=== PATIENT | female | born 1940 | race Caucasian/White ===

== ENCOUNTER → 2019-10-20 | Outpatient (CLI) | payer MEDICARE, OTHER ==
[~2019-10-20] MED LIST: FLUT16SP NS; LANS30CA PO; LEVO137T44 PO; LOSA100T14 PO; MELO15TA23 PO; METO25TA2 PO; MONT10TA49 PO
== END | disposition home or self-care (01) ==
LOC: LAB 13:50
PROVIDERS: ATTEND Internal Medicine Gastroenterology
DX: Z11.59 Encounter for screening for other viral diseases (principal)
CPT/HCPCS: U0003-CS

== ENCOUNTER → 2019-10-25 | Day surgery (SDC) | payer MEDICARE ==
[~2019-10-25] MED LIST changes: +HYDROmorphone 2 MG/ML VIAL IV PRN; +IV RINGERS,LACTATED 1000ML 1,000 ML IV SCH; +LIDOCAINE 1% PF 2 ML VIAL. ID PRN; +LIDOCAINE 2% PF 5 ML VIAL. ONE; +MORPHINE SULFATE 2 MG/ML VIAL. IV PRN; +ONDANSETRON PF 4 MG/2 ML VIAL. IV PRN; +PROCHLORPERAZINE 10 MG/2 ML VIAL. IV PRN; +PROPOFOL 10 MG/ML (20ML) VIAL. IV ONE; +fentaNYL PF VIAL 100 MCG/2 ML VIAL IV PRN; +hydrALAZINE 20 MG/ML VIAL. ONE
[2019-10-25 11:13] VITALS: BP 181/85
--- NOTE | 2019-10-26 15:08 | PATHOLOGY ---
[facility] Accession Number: [id number] . 01 Material submitted: . PART A: small bowel - SMALL BOWEL BIOPSY PART B: stomach - GASTRIC ANTRUM AND BODY BIOPSY. Modifiers: body PART C: esophagus - DISTAL ESOPHAGUS BIOPSY. Modifiers: distal PART D: esophagus - MID ESOPHAGUS BIOPSY. Modifiers: mid . 01 Clinical history: . Dysphagia . 02 Diagnosis: A. Small bowel biopsies: - No significant pathologic abnormalities. . B. Gastric biopsies, gastric antrum and gastric body: - Reactive gastropathy. . C. Esophageal biopsies, distal esophagus: - Segments of hyperplastic squamous esophageal mucosa, esophagogastric mucosa, and gastric mucosa showing mild to focal moderate chronic inflammation, with focal columnar-lined mucosa showing intestinal metaplasia with goblet cells consistent with Rodriguez's change. . D. Esophageal biopsies, middle esophagus: - Segments of squamous esophageal mucosa. . (BOGDANM:ney; 10/26/2019) [facility] 10/26/2019 1449 Local . 02 Comment: Sections of the small bowel biopsy reveal segments of duodenal and small intestine mucosa. Where best oriented, the mucosal villi show no sprue-like changes or significant inflammatory changes. . Sections of the gastric biopsy reveal segments of gastric body and gastric antral mucosa. The gastric body mucosa shows superficial congestion and no significant inflammation. The gastric antral mucosa shows congestion, mild foveolar hyperplasia, and focal slight chronic inflammation. A properly controlled immunoperoxidase stain for Helicobacter is negative for Helicobacter organisms. The findings are consistent with a reactive gastropathy. . Sections of the distal esophageal biopsy reveal segments of hyperplastic squamous esophageal mucosa, esophagogastric mucosa and gastric mucosa showing mild to focal moderate chronic inflammation. 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 There is no dysplasia or evidence of malignancy. . Sections of the middle esophageal biopsy reveal segments of tangentially oriented squamous esophageal mucosa. There is no evidence of Rodriguez's change, dysplasia, or malignancy. . (JPM:ney; 10/26/2019) . Special stain performed: Immunoperoxidase stain for Helicobacter on B1 . 02 Electronically signed: . Jose Bell MD, Pathologist NPI- [id number] . 01 Gross description: . A. The specimen is received in formalin, labeled "Paulino, Amarilis, small bowel BX" and consists of 3 fragments of pink-landry tissue measuring between 2.3 x 0.3 cm and 0.6 x 0.4 cm which are entirely submitted in A1. . B. The specimen is received in formalin, labeled "Paulino, Amarilis, gastric antrum and body BX" and consists of 2 fragments of pink-landry tissue measuring 0.6 x 0.2 cm and 0.4 x 0.3 cm which are entirely submitted in B1. . C. The specimen is received in formalin, labeled "Paulino, Amarilis, distal esophagus BX" and consists of multiple fragments of pink-landry tissue measuring 1.3 x 1.0 x 0.3 cm in aggregate which are entirely submitted in C1. . D. The specimen is received in formalin, labeled "Paulino, Amarilis, mid esophagus BX" and consists of 2 translucent fragments of pink tissue measuring between 0.3 x 0.2 cm and 0.4 x 0.2 cm which are entirely submitted in D1. (SDY; 10/25/2019) SYU/SYU 10/25/2019 1821 Local . 02 Pathologist provided ICD-10: K31.9, K20.8 . 02 CPT . 232206, 581257, 946514, [id number], [id number] Specimen Comment: A courtesy copy of this report has been sent to [phone], [phone] Specimen Comment: [id number] Specimen Comment: Report sent to / DR MO Performed at: 01 [facility] [address], [place] [id number] MD Terence Rosario MD Phone: [phone] Performed at: 02 [facility] [address], [place] [id number] MD Jose Bell MD Phone: [phone]
== END | disposition home or self-care (01) ==
LOC: ENDOS 08:49
PROVIDERS: ATTEND Internal Medicine Gastroenterology
DX: Z12.11 Encounter for screening for malignant neoplasm of colon (principal); K22.2 Esophageal obstruction; K64.0 First degree hemorrhoids; K21.9 Gastro-esophageal reflux disease without esophagitis; K57.30 Diverticulosis of large intestine without perforation or abscess without bleeding; K29.70 Gastritis, unspecified, without bleeding; E78.00 Pure hypercholesterolemia, unspecified; M19.90 Unspecified osteoarthritis, unspecified site; Z88.8 Allergy status to other drugs, medicaments and biological substances; Z87.891 Personal history of nicotine dependence; Z82.49 Family history of ischemic heart disease and other diseases of the circulatory system; Z86.010 Personal history of colon polyps
CPT/HCPCS: 43239; 43450; 88305; 88342; G0105; J0360; J2704; 45378

== ENCOUNTER 2021-02-03 14:36 | Inpatient (IN) | payer MEDICARE ==
[~2021-02-03] VITALS: Ht 167.6 cm; Wt 79.0 kg
[~2021-02-03 14:36] MED LIST changes: -HYDROmorphone 2 MG/ML VIAL IV PRN; -IV RINGERS,LACTATED 1000ML 1,000 ML IV SCH; -LIDOCAINE 1% PF 2 ML VIAL. ID PRN; -LIDOCAINE 2% PF 5 ML VIAL. ONE; -MORPHINE SULFATE 2 MG/ML VIAL. IV PRN; -ONDANSETRON PF 4 MG/2 ML VIAL. IV PRN; -PROCHLORPERAZINE 10 MG/2 ML VIAL. IV PRN; -PROPOFOL 10 MG/ML (20ML) VIAL. IV ONE; -fentaNYL PF VIAL 100 MCG/2 ML VIAL IV PRN; -hydrALAZINE 20 MG/ML VIAL. ONE
--- NOTE | 2021-02-03 15:12 | PHYS DOC ---
Past Medical History Additional Past Medical Histor: Rodriguez's Esophagus, Grave's Disease, Sleep apnea, Emphysema Past Surgical History: No Surgical History Smoking Status: Never Smoker Alcohol Use: None Drug Use: None General Adult EDM: Chief Complaint: ALTERED MENTAL STATUS HPI: HPI: Patient is a 80 year old female presents to the ED after an episode of confusion, slurred speech, and difficulty walking that occurred around 1210 this afternoon when she was at a family gathering for a grandson's birthday. Family who was with her reports that she was struggling to speek and when she did, it was markedly slurred. She appeared confused as well. She had difficulty walking and with coordination. All of these symptoms spontaneously resolved around 1:45 and at this time, the patient has no neurological complaint and the patient's daughter states she is now acting at her baseline. She did not take any new medications today. The patient denies nausea, vomiting, fever, chills, chest pain, shortness of breath, abdominal pain, urinary symptoms, cough, recent trauma, or any other complaints. She has had several orthopedic procedures with implanted metal. Glucose 141 POC. Review of Systems: Review of Systems: Constitutional: Negative except what was mentioned in HPI. Eyes: Negative except what was mentioned in HPI. HENT: Negative except what was mentioned in HPI. Respiratory: Negative except what was mentioned in HPI. Cardiovascular: Negative except what was mentioned in HPI. GI: Negative except what was mentioned in HPI. : Negative except what was mentioned in HPI. Musculoskeletal: Negative except what was mentioned in HPI. Integument: Negative except what was mentioned in HPI. Neurologic: Negative except what was mentioned in HPI. Heart Score: C/O Chest Pain: No Family History: Family History: non contributory Allergies: Allergies: Allergies Coded Allergies Type Severity Reaction Last Updated Verified Penicillins Allergy Intermediate 10/25/19 Yes Sulfa (Sulfonamide Antibiotics) Allergy Intermediate 10/25/19 Yes propylene glycol Allergy Intermediate 10/25/19 Yes Physical Exam: PE: General: Alert and oriented, No acute distress. Eye: Pupils are equal, round and reactive to light, Extraocular movements are intact, Normal conjunctiva. HEENT: Oral mucosa is moist, Normocephalic, Atraumatic. Neck: Supple, Non-tender. Cardiovascular: Normal rate, Good pulses equal in all extremities, Normal peripheral perfusion. Capillary refill: Less than 2 seconds. Respiratory: Nonlabored respirations, symmetrical expansion. Integumentary: Warm, Dry, Intact, No pallor. Neurologic: Orientation: The patient is alert and oriented to person, place, time, and situation. Following commands, speech is fluent, intact comprehension. Cranial Nerves: 2nd: normal; Visual crawley are full to confrontation. Pupils are equal, round and reactive to light and accommodation. 3rd, 4th & 6th: Extraocular movements are intact without nystagmus. 5th: normal; intact muscles of mastication. Intact to light touch. 7th: normal; no facial asymmetry 8th: normal 9th and 10th: normal; Uvula midline. 11th: normal; Shoulder shrug is symmetric 12th: normal; tongue is midline. Strength: Motor strength is 5/5 in the upper and lower extremities bilaterally. Normal bulk and tone in all four limbs without any evidence of an arm drift. Sensory: Intact to light touch in upper extremities and lower extremities bilaterally. Coordination is intact [id number], fine finger movements, rapidly alternating movements, heel to syed. Gait is normal and stable without ataxia. Psychiatric: Cooperative, Appropriate mood & affect. Current Patient Data: Labs: Laboratory Tests Test 02/03/21 15:15 White Blood Count 7.7 x10^3/uL (4.0-11.0) Red Blood Count 4.36 x10^6/uL (3.50-5.40) Hemoglobin 13.9 g/dL (12.0-15.5) Hematocrit 40.7 % (36.0-47.0) Mean Corpuscular Volume 94 fL (79-100) Mean Corpuscular Hemoglobin 32 pg (25-35) Mean Corpuscular Hemoglobin Concent 34 g/dL (31-37) Red Cell Distribution Width 14.5 % (11.5-14.5) Platelet Count 228 x10^3/uL (140-400) Neutrophils (%) (Auto) 73 % (31-73) Lymphocytes (%) (Auto) 18 % (24-48) Monocytes (%) (Auto) 7 % (0-9) Eosinophils (%) (Auto) 2 % (0-3) Basophils (%) (Auto) 1 % (0-3) Neutrophils # (Auto) 5.6 x10^3/uL (1.8-7.7) Lymphocytes # (Auto) 1.4 x10^3/uL (1.0-4.8) Monocytes # (Auto) 0.5 x10^3/uL (0.0-1.1) Eosinophils # (Auto) 0.1 x10^3/uL (0.0-0.7) Basophils # (Auto) 0.1 x10^3/uL (0.0-0.2) Sodium Level 138 mmol/L (136-145) Potassium Level 4.1 mmol/L (3.5-5.1) Chloride Level 102 mmol/L (98-107) Carbon Dioxide Level 30 mmol/L (21-32) Anion Gap 6 (6-14) Blood Urea Nitrogen 14 mg/dL (7-20) Creatinine 0.9 mg/dL (0.6-1.0) Estimated GFR (Cockcroft-Gault) 60.4 Glucose Level 113 mg/dL (70-99) Calcium Level 8.9 mg/dL (8.5-10.1) Thyroid Stimulating Hormone (TSH) 0.284 uIU/mL (0.358-3.74) Vital Signs: Vital Signs Date Time Temp Pulse Resp B/P (MAP) Pulse Ox O2 Delivery O2 Flow Rate FiO2 02/03/21 14:50 97.7 80 16 180/88 (118) 99 Room Air 97.7 EKG: EKG: Sinus arrhythmia rate of 79, no ST-T wave changes, no ectopic beats, normal axis, normal WA, QRS, and QTc intervals. Impression: Normal EKG. interpreted by me, Rob Villalobos D.O. Radiology/Procedures: Radiology/Procedures: HISTORY: Code stroke, slurred speech, transient ischemic attack. PQRS statement: CT scans at this facility use dose reduction including either automated exposure control, iterative reconstructions, and /or weight based radiation dosing via mA and kV modification when appropriate to reduce radiation dose to as low as reasonably achievable. Findings: Calcified plaque intracranial arteries. No intracranial hemorrhage, mass, hydrocephalus, extra-axial fluid collections or infarction. There is loss of doss matter differentiation with cortical and white matter hypodensity involving the left anterior insular ribbon and frontal opercular cortex. This is concerning for acute left MCA territory ischemic changes. Orbits, mastoids and bones are unremarkable. IMPRESSION: No intracranial hemorrhage or mass. Hypodensity of the left frontal lobe cortex and underlying white matter, and insular cortex, with loss of doss/white matter differential density, concerning for acute left MCA territory ischemic changes. CTA NECK: Visualized portions of thoracic aorta are unremarkable. Standard three-vessel aortic arch anatomy. Right common carotid artery is patent without evidence of stenosis, occlusion or aneurysm. Cervical segment of the right internal carotid artery is patent without evidence of stenosis, occlusion or aneurysm. Minimal plaque at the origin of the right internal carotid artery without significant stenosis. Left common carotid artery is patent without evidence of stenosis, occlusion or aneurysm. There is minimal plaque at the origin of the left internal carotid artery without significant stenosis. Right vertebral artery is patent to the basilar confluence without evidence of stenosis, occlusion or aneurysm. Left vertebral artery is patent to basilar confluence without evidence of stenosis, occlusion or aneurysm. Moderate centrilobular emphysematous change noted at the upper lobes. CTA HEAD: Minimal calcified plaque at the cavernous segment of the right internal carotid artery velocity stenosis. Right MCA is patent. Right SAW is patent. Minimal calcified plaque at the cavernous segment left internal carotid artery without significant stenosis. Left MCA is patent. Left SAW is patent. Basilar artery is patent without evidence of stenosis, occlusion or aneurysm. traveling clerk are patent bilaterally. IMPRESSION: 1. No large vessel occlusion. 2. Minimal plaque at the origin of the internal carotid arteries bilaterally without significant stenosis. 3. Minimal plaque at the cavernous segments of the internal carotid arteries bilaterally without significant stenosis. Course & Med Decision Making: Course & Med Decision Making Patient was seen by me after concerning symptoms for stroke versus TIA. Her neurological exam as above was unremarkable and the patient and the patient's family believe that she is back to baseline at the time of my initial evaluation. I discussed the case with Dr. Payton after my initial evaluation. The patient then had a noncontrast CT scan ordered which showed no acute bleed but showed evidence for an acute left MCA stroke. She then went emergently for another CT angiogram which did not show any vessel occlusion. I discussed both cases with the radiologist. I further discussed the case with Dr. Payton after imaging was completed and I discussed the case with the radiologist. No further acute intervention recommended per Dr. Payton and the patient will likely receive an MRI while in the hospital. Aspirin 325 mg was ordered by me. Upon counseling the patient, the patient's neurological exam has not changed and she remains at baseline without any deficits. Her NIH score is 0. Because of this, the patient is not a candidate for TPA as the risk would likely outweigh the benefits given that she has recovered and her neurological exam is benign. Admission process started. 1650: After Dr. Payton reviewed scans, he believes there may be an MCA lesion and he disagrees with the radiology read. Recommended consult with neurointerventional. I discussed this with Dr. Ramirez at at 1655. Images clouded. 1730: I discussed the case with neurology who does not recommend intervention or transfer. Patient has distal M2 lesion that is not accessible by thrombectomy per their read. She is also not a candidate due to her NIH 0 status, which still persists after repeat evaluation. Patient will be admitted here at [facility] to Dr. Vick with Dr. Payton following. Critical care time was 45 minutes which includes time at bedside, spent in discussion of patient's care with specialists and/or family members, with interpretation of laboratory and/or radiological studies and is exclusive of procedures. My Orders - ROB VILLALOBOS DO Procedure Category Date Status Time Vital Signs PAUL 02/03/21 In Process 15:05 Continuous Pulse Ox PAUL 02/03/21 In Process 15:05 Mobile Unit Assistant PAUL 02/03/21 In Process 15:05 Insert And Maintain 2 PAUL 02/03/21 In Process IVs 15:05 Oxygen PAUL 02/03/21 In Process 15:05 Elevate Head Of Bed PAUL 02/03/21 In Process 15:05 Nih Stroke Scale PAUL 02/03/21 In Process Assessment 15:05 Notify Provider PAUL 02/03/21 In Process 15:05 Nothing By Mouth DIET 02/03/21 Complete Breakfast Basic Metabolic Panel LAB 02/03/21 Complete 15:05 Glucose Poct X 1 PAUL 02/03/21 In Process 15:05 12 Lead Ekg EKG 02/03/21 Logged 15:05 Cbc W [employer] LAB 02/03/21 Complete 15:05 Ct Code Stroke Head Wo CT 02/03/21 Resulted 15:[address] 02/03/21 Resulted And Neck 15:05 Thyroid Stim Hormone LAB 02/03/21 Complete (Tsh) 15:07 Ua, Cult If Indicated LAB 02/03/21 Logged 15:08 Iohexol 300 Mg/Ml PHA 02/03/21 Complete (Omnipaque 300 Mg/Ml) 16:15 Contrast Given -- PHA 02/03/21 In Process Info Only (Contrast Gi 16:15 Aspirin (Allison PHA 02/03/21 Complete Aspirin) 16:30 Er Bridge Order ADT 02/03/21 Transmitted 16:23 Code Status CODE 02/03/21 Transmitted 16:23 Vital Signs, Per Unit PAUL 02/03/21 In Process Protocol 16:23 Regular DIET 02/03/21 Transmitted Dinner Cbc W [employer] LAB 02/04/21 Verified 06:00 Basic Metabolic Panel LAB 02/04/21 Verified 06:00 Ondansetron Pf PHA 02/03/21 In Process (Zofran) 16:30 Acetaminophen PHA 02/03/21 In Process (Tylenol) 16:30 Consult Physician By CONS 02/03/21 Transmitted Name 16:23 Vital Signs Q4h PAUL 02/03/21 In Process 16:23 Departure Departure Impression: Primary Impression: Acute ischemic left MCA stroke Disposition: ADMITTED INPATIENT Admitting Physician: TIAN Graf) Condition: STABLE Referrals: TED MO (PCP) ROB VILLLAOBOS DO Feb 03, 2021 15:12
[2021-02-03 15:25] LABS: BASO # 0.1 x10^3/uL (0.0-0.2); BASO % 1 % (0-3); EOS # 0.1 x10^3/uL (0.0-0.7); EOS % 2 % (0-3); HEMATOCRIT 40.7 % (36.0-47.0); HEMOGLOBIN 13.9 g/dL (12.0-15.5); LYMPH # 1.4 x10^3/uL (1.0-4.8); LYMPH % 18 % (24-48); MEAN CORPUSCULAR HEMOGLOBIN 32 pg (25-35); MEAN CORPUSCULAR HGB CONC 34 g/dL (31-37); MEAN CORPUSCULAR VOLUME 94 fL (79-100); MONO # 0.5 x10^3/uL (0.0-1.1); MONO % 7 % (0-9); NEUT # 5.6 x10^3/uL (1.8-7.7); NEUT % 73 % (31-73); PLATELET COUNT 228 x10^3/uL (140-400); RED BLOOD COUNT 4.36 x10^6/uL (3.50-5.40); RED CELL DISTRIBUTION WIDTH 14.5 % (11.5-14.5); WHITE BLOOD COUNT 7.7 x10^3/uL (4.0-11.0)
[2021-02-03 15:35] LABS: CALCIUM 8.9 mg/dL (8.5-10.1); CREATININE 0.9 mg/dL (0.6-1.0); GFR 60.4; POTASSIUM 4.1 mmol/L (3.5-5.1)
--- NOTE | 2021-02-03 15:43 | RAD ---
CT abdomen without contrast HISTORY: Code stroke, slurred speech, transient ischemic attack. PQRS statement: CT scans at this facility use dose reduction including either automated exposure cont rol, iterative reconstructions, and /or weight based radiation dosing via mA and kV modification when appropriate to reduce radiation dose to as low as reasonably achievable. Findings: Calcified plaque intracranial arteries. No intracranial hemorrhage, mass, hydrocephalus, ex tra-axial fluid collections or infarction. There is loss of doss matter differentiation with cortical and white matter hypodensity involving the left anterior insular ribbon and frontal opercular cortex . This is concerning for acute left MCA territory ischemic changes. Orbits, mastoids and bones are un remarkable. IMPRESSION: No intracranial hemorrhage or mass. Hypodensity of the left frontal lobe cortex and under lying white matter, and insular cortex, with loss of doss/white matter differential density, concerni ng for acute left MCA territory ischemic changes. FOR INTERNAL CODING PURPOSES Critical result: Findings discussed with Dr. Villalobos in the ED at 02/03/2021 3:35 PM. RESULT CODE: (C) Electronically signed by: Jasen Solitario MD (02/03/2021 3:41 PM) [id number]
[2021-02-03] MEDS ORDERED: CONTRAST GIVEN. MC PRN (16:15)
[2021-02-03] MEDS ORDERED: IOHEXOL 300 MG/ML 100ML VIAL. IV ONE (16:15)
--- NOTE | 2021-02-03 16:27 | RAD ---
Exam: CTA head and neck INDICATION: Slurred speech TECHNIQUE: Sequential axial images through the head and neck obtained following the administration of 75 mL of Omni 300 IV contrast. Sagittal and coronal reformatted images were reconstructed from the a xial data and reviewed. 3-D reformatted images were reconstructed from the axial data and reviewed. Exposure: One or more of the following in the visualized dose reduction techniques were utilized for this examination: 1. Automated exposure control 2. Adjustment of the MA and/or KV according to patient size 3. Use of iterative of reconstructive technique Comparisons: CT head without contrast same day FINDINGS: CTA NECK: Visualized portions of thoracic aorta are unremarkable. Standard three-vessel aortic arch anatomy. Right common carotid artery is patent without evidence of stenosis, occlusion or aneurysm. Cervical s egment of the right internal carotid artery is patent without evidence of stenosis, occlusion or aneu rysm. Minimal plaque at the origin of the right internal carotid artery without significant stenosis. Left common carotid artery is patent without evidence of stenosis, occlusion or aneurysm. There is mi nimal plaque at the origin of the left internal carotid artery without significant stenosis. Right vertebral artery is patent to the basilar confluence without evidence of stenosis, occlusion or aneurysm. Left vertebral artery is patent to basilar confluence without evidence of stenosis, occlusion or aneu rysm. Moderate centrilobular emphysematous change noted at the upper lobes. CTA HEAD: Minimal calcified plaque at the cavernous segment of the right internal carotid artery velocity steno sis. Right MCA is patent. Right SAW is patent. Minimal calcified plaque at the cavernous segment left internal carotid artery without significant st enosis. Left MCA is patent. Left SAW is patent. Basilar artery is patent without evidence of stenosis, occlusion or aneurysm. staff mechanical engineer are patent bilater ally. IMPRESSION: 1. No large vessel occlusion. 2. Minimal plaque at the origin of the internal carotid arteries bilaterally without significant alexei nosis. 3. Minimal plaque at the cavernous segments of the internal carotid arteries bilaterally without sig nificant stenosis. FOR INTERNAL CODING PURPOSES Critical result: Findings discussed with Dr. Villalobos at 02/03/2021 4:18 PM. RESULT CODE: (C) Electronically signed by: Gio Arias MD (02/03/2021 4:24 PM) [facility]
[2021-02-03] MEDS ORDERED: ACETAMINOPHEN 325 MG TABLET. PO PRN (16:30)
[2021-02-03] MEDS ORDERED: ONDANSETRON PF 4 MG/2 ML VIAL. IVP PRN ×2 (16:30→18:00)
[2021-02-03] MEDS ORDERED: ASPIRIN 325 MG TABLET PO ONE (16:30)
--- NOTE | 2021-02-03 17:57 | PDOC1 ---
History and Physical Date of Service: DOS: DATE: 02/03/21 TIME: 17:39 Chief Complaint: Chief Complain: Slurred speech History of Present Illness: HPI: History obtained from discussion with the ED physician and chart review 80 year old female presents to the ED after an episode of confusion, slurred speech, and difficulty walking that occurred around 1210 this afternoon when she was at a family gathering for a grandson's birthday. Family who was with her reports that she was struggling to speek and when she did, it was markedly slurred. She appeared confused as well. She had difficulty walking and with coordination. All of these symptoms spontaneously resolved around 1:45 and at this time, the patient has no neurological complaint and the patient's daughter states she is now acting at her baseline. She did not take any new medications today. The patient denies nausea, vomiting, fever, chills, chest pain, shortness of breath, abdominal pain, urinary symptoms, cough, recent trauma, or any other complaints. She has had several orthopedic procedures with implanted metal. Glucose 141 POC. Patient was seen by me after concerning symptoms for stroke versus TIA. Her neurological exam as above was unremarkable and the patient and the patient's family believe that she is back to baseline at the time of my initial evaluation. I discussed the case with Dr. Payton after my initial evaluation. The patient then had a noncontrast CT scan ordered which showed no acute bleed but showed evidence for an acute left MCA stroke. She then went emergently for another CT angiogram which did not show any vessel occlusion. I discussed both cases with the radiologist. I further discussed the case with Dr. Payton after imaging was completed and I discussed the case with the radiologist. No further acute intervention recommended per Dr. Payton and the patient will likely receive an MRI while in the hospital. Aspirin 325 mg was ordered by me. Upon counseling the patient, the patient's neurological exam has not changed and she remains at baseline without any deficits. Her NIH score is 0. Because of this, the patient is not a candidate for TPA as the risk would likely outweigh the benefits given that she has recovered and her neurological exam is benign. Admission process started. 1650: After Dr. Payton reviewed scans, he believes there may be an MCA lesion and he disagrees with the radiology read. Recommended consult with [facility] neurointerventional. I discussed this with Dr. Ramirez at [facility] at [id number]. Images clouded. Past Medical/Surgical History: PMH/PSH: Past Medical Histor: Rodriguez's Esophagus, Grave's Disease, Sleep apnea, Emp hysema Past Surgical History: No Surgical History Allergies: Allergies: Coded Allergies: Penicillins (Verified Allergy, Intermediate, 10/25/19) Sulfa (Sulfonamide Antibiotics) (Verified Allergy, Intermediate, 10/25/19) propylene glycol (Verified Allergy, Intermediate, 10/25/19) Family History: Family History: Reviewed with no relevant findings Social History: Social History: Smoking Status: Never Smoker Alcohol Use: None Drug Use: None Current Medications: Current Medications Current Medications Iohexol (Omnipaque 300 Mg/ml) 75 ml 1X ONCE IV ; Start 02/03/21 at 16:15; Stop 02/03/21 at 16:16; Status DC Info (CONTRAST GIVEN -- Rx MONITORING) 1 each PRN DAILY PRN MC SEE COMMENTS; Start 02/03/21 at 16:15; Stop 02/05/21 at 16:14 Aspirin (Allison Aspirin) 325 mg 1X ONCE PO ; Start 02/03/21 at 16:30; Stop 02/03/21 at 16:31; Status DC Ondansetron HCl (Zofran) 4 mg PRN Q8HRS PRN IVP NAUSEA/VOMITING; Start 02/03/21 at 16:30; Stop 02/04/21 at 16:29 Acetaminophen (Tylenol) 650 mg PRN Q4HRS PRN PO FEVER > 100.3'F; Start 02/03/21 at 16:30; Stop 02/04/21 at 16:29 Active Scripts Active Reported Lansoprazole 30 Mg Capsule.dr 30 Mg PO DAILY Fluticasone Propionate Nasal [place] (Fluticasone Propionate) 16 Gm [place].susp 2 [place] NS DAILY Meloxicam 15 Mg Tablet 15 Mg PO DAILY Montelukast Sodium Tablet (Montelukast Sodium) 10 Mg Tablet 10 Mg PO HS Toprol Xl (Metoprolol Succinate) 25 Mg Tab.er.24h 25 Mg PO DAILY Losartan Potassium 100 Mg Tablet 100 Mg PO DAILY Synthroid (Levothyroxine Sodium) 137 Mcg Tablet 137 Mcg PO DAILYAC ROS: Review of Systems Review of System REVIEW OF SYSTEMS: GENERAL: Denies weakness SKIN: No bruising, hair changes or rashes. EYES: No blurred, double or loss of vision. NOSE AND THROAT: No history of nosebleeds, hoarseness or sore throat. HEART: No history of palpitations, chest pain or shortness of breath on exertion. LUNGS: Denies cough, hemoptysis, wheezing or shortness of breath. GASTROINTESTINAL: Denies changes in appetite, nausea, vomiting, diarrhea or constipation. GENITOURINARY: No history of frequency, urgency, hesitancy or nocturia. NEUROLOGIC: Denies history of numbness, tingling, or tremor. PSYCHIATRIC: No history of panic, anxiety or depression. ENDOCRINE: No history of heat or cold intolerance, polyuria or polydipsia. EXTREMITIES: Denies joint pain, pain on walking or stiffness. Physical Exam: Vital Signs: Vital Signs Date Time Temp Pulse Resp B/P (MAP) Pulse Ox O2 Delivery O2 Flow Rate FiO2 02/03/21 14:50 97.7 80 16 180/88 (118) 99 Room Air 97.7 Physcial Exam: GEN: No apparent distress. Alert and oriented HEENT: Normal cephalic, atraumatic, external auditory canals are patent EYES: Extraocular muscles are intact, pupil are equally round and reactive to light and accommodation MUSCULOSKELETAL: Well developed , well nourished, good range of motion ENDOCRINE: No thyromegaly was palpated LYMPHATICS: No cervical chain or axillary nodes were noted HEMATOPOIETIC: No bruising NECK: Supple, no JVD, no thyromegaly was noted LUNGS: Clear to auscultation in all lung crawley without rhonchi or wheezing HEART: RRR, S!, S2 present. Peripheral pulses intact, no obvious murmurs noted ABDOMEN: Soft, nontender. Positive bowel sounds, no organomegaly, normal bowel sounds EXTREMITIES: Without clubbing, cyanosis, or edema. Pedal pulses intact. Negative Homans sign NEUROLOGIC: Normal speech and tone. A&O x 3, moves all extremities, no obvious focal deficits PSYCHIATRIC: Normal affect, normal mood. Stable SKIN: No ulcerations or rashes, good skin turgor, no jaundice VASCULAR: Good capillary refill, neurovascular bundle appears to be intact Labs: Labs: Laboratory Tests Test 02/03/21 15:15 White Blood Count 7.7 x10^3/uL (4.0-11.0) Red Blood Count 4.36 x10^6/uL (3.50-5.40) Hemoglobin 13.9 g/dL (12.0-15.5) Hematocrit 40.7 % (36.0-47.0) Mean Corpuscular Volume 94 fL (79-100) Mean Corpuscular Hemoglobin 32 pg (25-35) Mean Corpuscular Hemoglobin Concent 34 g/dL (31-37) Red Cell Distribution Width 14.5 % (11.5-14.5) Platelet Count 228 x10^3/uL (140-400) Neutrophils (%) (Auto) 73 % (31-73) Lymphocytes (%) (Auto) 18 % (24-48) Monocytes (%) (Auto) 7 % (0-9) Eosinophils (%) (Auto) 2 % (0-3) Basophils (%) (Auto) 1 % (0-3) Neutrophils # (Auto) 5.6 x10^3/uL (1.8-7.7) Lymphocytes # (Auto) 1.4 x10^3/uL (1.0-4.8) Monocytes # (Auto) 0.5 x10^3/uL (0.0-1.1) Eosinophils # (Auto) 0.1 x10^3/uL (0.0-0.7) Basophils # (Auto) 0.1 x10^3/uL (0.0-0.2) Sodium Level 138 mmol/L (136-145) Potassium Level 4.1 mmol/L (3.5-5.1) Chloride Level 102 mmol/L (98-107) Carbon Dioxide Level 30 mmol/L (21-32) Anion Gap 6 (6-14) Blood Urea Nitrogen 14 mg/dL (7-20) Creatinine 0.9 mg/dL (0.6-1.0) Estimated GFR (Cockcroft-Gault) 60.4 Glucose Level 113 mg/dL (70-99) Calcium Level 8.9 mg/dL (8.5-10.1) Thyroid Stimulating Hormone (TSH) 0.284 uIU/mL (0.358-3.74) Laboratory Tests Test 02/03/21 15:15 White Blood Count 7.7 x10^3/uL (4.0-11.0) Red Blood Count 4.36 x10^6/uL (3.50-5.40) Hemoglobin 13.9 g/dL (12.0-15.5) Hematocrit 40.7 % (36.0-47.0) Mean Corpuscular Volume 94 fL (79-100) Mean Corpuscular Hemoglobin 32 pg (25-35) Mean Corpuscular Hemoglobin Concent 34 g/dL (31-37) Red Cell Distribution Width 14.5 % (11.5-14.5) Platelet Count 228 x10^3/uL (140-400) Neutrophils (%) (Auto) 73 % (31-73) Lymphocytes (%) (Auto) 18 % (24-48) Monocytes (%) (Auto) 7 % (0-9) Eosinophils (%) (Auto) 2 % (0-3) Basophils (%) (Auto) 1 % (0-3) Neutrophils # (Auto) 5.6 x10^3/uL (1.8-7.7) Lymphocytes # (Auto) 1.4 x10^3/uL (1.0-4.8) Monocytes # (Auto) 0.5 x10^3/uL (0.0-1.1) Eosinophils # (Auto) 0.1 x10^3/uL (0.0-0.7) Basophils # (Auto) 0.1 x10^3/uL (0.0-0.2) Sodium Level 138 mmol/L (136-145) Potassium Level 4.1 mmol/L (3.5-5.1) Chloride Level 102 mmol/L (98-107) Carbon Dioxide Level 30 mmol/L (21-32) Anion Gap 6 (6-14) Blood Urea Nitrogen 14 mg/dL (7-20) Creatinine 0.9 mg/dL (0.6-1.0) Estimated GFR (Cockcroft-Gault) 60.4 Glucose Level 113 mg/dL (70-99) Calcium Level 8.9 mg/dL (8.5-10.1) Thyroid Stimulating Hormone (TSH) 0.284 uIU/mL (0.358-3.74) Images: Images PROCEDURE: CT CODE STROKE HEAD WO IMPRESSION: No intracranial hemorrhage or mass. Hypodensity of the left frontal lobe cortex and underlying white matter, and insular cortex, with loss of doss/white matter differential density, concerning for acute left MCA territory ischemic changes. Assessment/Plan Assessment/Plan Left MCA stroke Hypertensive emergency History of Graves' disease History of sleep apnea History of COPD History of GERD Admit to hospitalist service for further management Pending free T4 levels Onset of symptoms < 4.5 hours NIH 0 Admit to medicine for further workup Neuro consult Pending MRI brain, TTE, carotid U/S vs CTA head/neck if suspecting large anterior circulation occulsion within 24 hours of presentation of symptoms continue telemonitoring for at least 24 hours contine IVF while NPO maintain normoglycemia with goals of 140-180 permissive HTN with goals between 140-180/90-105 for at least 24 hours if tPA administered, maintain BP goals < 180/105 for at least 24 hours continue ASA 81 daily within 48 hours continue high intensity statins pending PT/OT/speech Justifications for Admission Other Justification CAMACHO VOSS MD Feb 03, 2021 17:57
[2021-02-03] MEDS ORDERED: DEXTROSE 50% 25 GM / 50ML DISP.SYRIN. IV PRN (18:00)
[2021-02-03] MEDS ORDERED: PROCHLORPERAZINE 10 MG/2 ML VIAL. IV PRN (18:00)
[2021-02-03] MEDS ORDERED: SENNOSIDES 8.6 MG TABLET PO PRN (18:00)
[2021-02-03] MEDS ORDERED: ZOLPIDEM 5 MG TABLET. PO PRN (18:00)
[2021-02-03] MEDS ORDERED: DOCUSATE SODIUM 100 MG CAPSULE. PO PRN (18:00)
[2021-02-03] MEDS ORDERED: LORazepam 0.5 MG TABLET PO PRN (18:00)
[2021-02-03 18:21] LABS: CHOLESTEROL/HDL RATIO 2.9
[2021-02-03 18:35] VITALS: BP 179/84
[2021-02-03] MEDS ORDERED: IBUP-1007 PO (19:36)
[2021-02-03] MEDS ORDERED: ASCO500C PO (19:36)
[2021-02-03] MEDS ORDERED: ZINC50TA39 PO (19:36)
[2021-02-03] MEDS ORDERED: ACET325T21 PO (19:36)
[2021-02-03] MEDS ORDERED: ESOM40CA PO (19:36)
[2021-02-03] MEDS ORDERED: CHOL10004 PO (19:36)
[2021-02-03] MEDS ORDERED: LUTE1CAP5 PO (19:36)
[2021-02-03] MEDS ORDERED: MULT-496 PO (19:36)
[2021-02-03] MEDS: IV NORMAL SALINE 1000ML BAG 1,000 ML IV SCH (20:48)
[2021-02-03 22:38] VITALS: BP 184/82
[2021-02-03] MEDS: METOPROLOL TART IMMED RELEASE 25 MG TABLET. PO SCH (22:53)
[2021-02-03] MEDS ORDERED: ANTI-COAG MONITOR BY PHARMACY. MC PRN (23:45)
--- NOTE | 2021-02-03 23:46 | EKG ---
[facility] [address] [place] [address] Test Date: 2021-02-03 Test Time: 23:08:06 Pat Name: JACK CABRERA Department: Room: 2 Gender: F Housekeeping Aide: SEDA : 1940 Requested By: POLO HINKLE Order Number: [id number] Reading MD: Kj Pereira Measurements Intervals [place] Rate: 75 P: MD: QRS: -7 QRSD: 84 T: -16 QT: 396 QTc: 445 Interpretive Statements ATRIAL FIB FLUTTER LEFTWARD AXIS T ABNORMALITY IN INFERIOR LEADS ABNORMAL ECG RI6.02 No previous ECG available for comparison Electronically Signed On 02-05-2021 9:26:53 KNITTING INSPECTOR by Kj Pereira
[2021-02-03] MEDS: APIXABAN 2.5 MG TABLET. PO SCH (23:56)
[2021-02-04] VITALS (9 sets, daily range): BP systolic 141–207; BP diastolic 60–121
--- NOTE | 2021-02-04 | EKG ---
[facility] [address] [place] [address] Test Date: 2021-02-03 Test Time: 15:15:19 Pat Name: JACK CABRERA Department: Room: 2 1 Gender: F Assistant Account Manager: : 1940 Requested By: CAMACHO VOSS Order Number: [id number] Reading MD: Kj Pereira Measurements Intervals [place] Rate: 79 P: CA: QRS: 22 QRSD: 78 T: 23 QT: 384 QTc: 441 Interpretive Statements ATRIAL FIB/FLUTTER OTHERWISE NORMAL ECG RI6.02 No previous ECG available for comparison Electronically Signed On 02-05-2021 9:29:11 REFINERY OPERATOR by Kj Pereira
[2021-02-04 04:45] LABS: BASO # 0.1 x10^3/uL (0.0-0.2); BASO % 1 % (0-3); EOS # 0.1 x10^3/uL (0.0-0.7); EOS % 2 % (0-3); HEMATOCRIT 39.6 % (36.0-47.0); HEMOGLOBIN 13.5 g/dL (12.0-15.5); LYMPH # 1.5 x10^3/uL (1.0-4.8); LYMPH % 20 % (24-48); MEAN CORPUSCULAR HEMOGLOBIN 32 pg (25-35); MEAN CORPUSCULAR HGB CONC 34 g/dL (31-37); MEAN CORPUSCULAR VOLUME 93 fL (79-100); MONO # 0.6 x10^3/uL (0.0-1.1); MONO % 8 % (0-9); NEUT # 5.2 x10^3/uL (1.8-7.7); NEUT % 70 % (31-73); PLATELET COUNT 192 x10^3/uL (140-400); RED BLOOD COUNT 4.25 x10^6/uL (3.50-5.40); RED CELL DISTRIBUTION WIDTH 14.6 % (11.5-14.5); WHITE BLOOD COUNT 7.4 x10^3/uL (4.0-11.0)
[2021-02-04 04:54] LABS: CALCIUM 8.4 mg/dL (8.5-10.1); CREATININE 0.8 mg/dL (0.6-1.0); GFR 69.2; MAGNESIUM 1.7 mg/dL (1.8-2.4); PHOSPHORUS 3.7 mg/dL (2.6-4.7); POTASSIUM 3.9 mmol/L (3.5-5.1)
[2021-02-04] MEDS: IV NORMAL SALINE 1000ML BAG 1,000 ML IV SCH ×2 (05:32→15:16)
[2021-02-04] MEDS ORDERED: LEVOTHYROXINE 137 MCG TABLET PO SCH (06:00)
[2021-02-04] MEDS: PANTOPRAZOLE 40 MG TABLET.DR. PO SCH (08:16)
[2021-02-04] MEDS: APIXABAN 2.5 MG TABLET. PO SCH (08:16)
[2021-02-04] MEDS: METOPROLOL TART IMMED RELEASE 25 MG TABLET. PO SCH ×2 (08:17→20:25)
[2021-02-04] MEDS: LABETALOL 20 MG/4 ML DISP.SYRIN. IVP PRN ×2 (09:27→14:55)
[2021-02-04 09:48] LABS: BILIRUBIN,URINE NEGATIVE (NEG); CLARITY,URINE CLEAR; COLOR,URINE YELLOW; NITRITE,URINE NEGATIVE (NEG); PROTEIN,URINE NEGATIVE (NEG-TRACE); UROBILINOGEN,URINE 0.2 mg/dL (0.2 mg/dL)
[2021-02-04 10:24] LABS: BACTERIA,URINE 0 /HPF (0-FEW); RBC,URINE 0 /HPF (0-2); WBC,URINE 0 /HPF (0-4)
[2021-02-04] MEDS: ZINC SULFATE 220 MG CAPSULE. PO SCH (12:06)
[2021-02-04] MEDS: LOSARTAN POTASSIUM 50 MG TABLET. PO SCH ×2 (12:07→20:24)
[2021-02-04] MEDS: FLUTICASONE 50MCG/NASAL SPRAY 16GM BOTTLE. NS SCH (12:07)
[2021-02-04] MEDS: MULTIVITAMIN with MINERAL TABLET. PO SCH (12:08)
--- NOTE | 2021-02-04 12:31 | NUR ---
Bedside Swallow Evaluation completed. Please refer to full report in intervention section for additional information. Impressions: Functional oropharyngeal swallow w/ no s/s aspiration across trials of thin liquids, puree and solids. Appears at low risk of aspiration for all consistencies. Recommendations: Regular diet w/ thin liquids, general swallow precautions. No additional ST f/u indicated at this time.
--- NOTE | 2021-02-04 14:43 | PDOC2 ---
NEUROLOGY CONSULT Date of Service DOS: DATE: 02/04/21 TIME: 14:29 Reason for Consult Reason for Consult: Stroke symptoms Referring Physician Referring Physician: Dr. Vick Source Source: Caregiver (Daughter), Chart review, Patient History of Present Illness History of Present Illness The patient is a 80-year-old right-handed female who at 12:10 yesterday presented at a birthday alliance party for her great grandson. She was struggling to speak and seemed confused. Speech was slurred. She had difficulty walking. She sat in a chair. A nephew is a nurse and examined the patient and recommende d transport by emergency medical services. Patient symptoms resolved after about an hour and a half. The CT head showed possible left middle cerebral artery acute infarct. The CT angiogram was read as essentially normal. I reviewed the images. I discussed the case with Dr. Villalobos. I felt that there may be a left middle cerebral artery lesion and recommended that we cloud images to . Dr. Villalobos discussed the case with Dr. Candida Ramirez at . She did not recommend intervention or transfer, but they did feel there was a distal M2 lesion that was not accessible by thrombectomy. They did not feel that she was a candidate for alteplase given complete resolution of symptoms. Patient's daughter says the patient has had some confusion and word finding problems for up to 11 months following a fall. She has never had a severe an episode as yesterday, though. There is no prior history of stroke, seizure, or other head injury. She has atrial fibrillation and is on apixaban. Past Medical History Cardiovascular: HTN, Hyperlipidemia Pulmonary: COPD (On oxygen), Other (Sleep apnea) GI: GERD (Rodriguez's esophagus), Other Musculoskeletal: Osteoarthritis ENT: Other (Bilateral hearing loss) Endocrine: Hypothyroidism (Graves' disease) Past Surgical History Past Surgical History: Appendectomy, Cholecystectomy, Hernia Repair ([facility]), Total hip replacement, Total knee replacement, Tonsillectomy (Adenoidectomy), Hysterectomy, Other (Carpal tunnel release, hammertoe, right shoulder) Family History Family History: CAD Social History Social History , no tobacco or alcohol Current Medications Current Medications Current Medications Iohexol (Omnipaque 300 Mg/ml) 75 ml 1X ONCE IV ; Start 02/03/21 at 16:15; Stop 02/03/21 at 16:16; Status DC Info (CONTRAST GIVEN -- Rx MONITORING) 1 each PRN DAILY PRN MC SEE COMMENTS; Start 02/03/21 at 16:15; Stop 02/05/21 at 16:14 Aspirin (Allison Aspirin) 325 mg 1X ONCE PO Last administered on 02/03/21at 17:47; Start 02/03/21 at 16:30; Stop 02/03/21 at 16:31; Status DC Ondansetron HCl (Zofran) 4 mg PRN Q8HRS PRN IVP NAUSEA/VOMITING; Start 02/03/21 at 16:30; Stop 02/04/21 at 16:29 Acetaminophen (Tylenol) 650 mg PRN Q4HRS PRN PO FEVER > 100.3'F; Start 02/03/21 at 16:30; Stop 02/04/21 at 16:29 Sennosides (Senna) 17.2 mg PRN BID PRN PO CONSTIPATION; Start 02/03/21 at 18:00 Docusate Sodium (Colace) 100 mg PRN DAILY PRN PO HARD STOOLS; Start 02/03/21 at 18:00 Ondansetron HCl (Zofran) 4 mg PRN Q6HRS PRN IVP NAUSEA/VOMITING; Start 02/03/21 at 18:00 Dextrose (Dextrose 50%-Water Syringe) 12.5 gm PRN Q15MIN PRN IV SEE COMMENTS; Start 02/03/21 at 18:00 Sodium Chloride 1,000 ml @ 100 mls/hr Q10H IV Last administered on 02/04/21at 05:32; Start 02/03/21 at 18:00 Acetaminophen (Tylenol) 650 mg PRN Q4HRS PRN PO TEMP OVER 100.4F OR MILD PAIN; Start 02/03/21 at 18:00 Lorazepam (Ativan) 0.5 mg PRN Q6HRS PRN PO ANXIETY / AGITATION; Start 02/03/21 at 18:00 Lorazepam (Ativan Inj) 0.25 mg PRN Q4HRS PRN IV ANXIETY / AGITATION; Start 02/03/21 at 18:00 Enoxaparin Sodium (Lovenox 40mg Syringe) 40 mg Q24H SQ ; Start 02/04/21 at 18:00; Stop 02/03/21 at 23:51; Status DC Prochlorperazine Edisylate (Compazine) 10 mg PRN Q6HRS PRN IV NAUSEA/VOMITING; Start 02/03/21 at 18:00 Zolpidem Tartrate (Ambien) 2.5 mg PRN QHS PRN PO INSOMNIA; Start 02/03/21 at 18:00 Pantoprazole Sodium (Protonix) 40 mg DAILYAC PO Last administered on 02/04/21at 08:16; Start 02/04/21 at 07:30 Levothyroxine Sodium (Synthroid) 137 mcg DAILY06 PO Last administered on 02/04/21at 05:32; Start 02/04/21 at 06:00; Stop 02/04/21 at 09:09; Status DC Metoprolol Tartrate (Lopressor) 12.5 mg BID PO Last administered on 02/04/21at 08:17; Start 02/03/21 at 23:00 Labetalol HCl (Normodyne Iv Push) 10 mg PRN Q2HR PRN IVP HYPERTENSION Last administered on 02/04/21at 09:27; Start 02/03/21 at 22:15 Apixaban (Eliquis) 2.5 mg BID PO Last administered on 02/04/21at 08:16; Start 02/04/21 at 00:00 Info (Anti-Coagulation Monitoring By Pharmacy) 1 each PRN DAILY PRN MC PER PROTOCOL Last administered on 02/04/21at 01:51; Start 02/03/21 at 23:45 Levothyroxine Sodium (Synthroid) 125 mcg DAILY06 PO ; Start 02/05/21 at 06:00 Losartan Potassium (Cozaar) 50 mg BID PO Last administered on 02/04/21at 12:07; Start 02/04/21 at 11:30 Fluticasone Propionate (Flonase) 2 spray DAILY NS Last administered on 02/04/21at 12:07; Start 02/04/21 at 12:00 Multivitamins (Thera M Plus) 1 tab DAILY PO Last administered on 02/04/21at 12:08; Start 02/04/21 at 12:00 Zinc Sulfate (Orazinc) 220 mg DAILY PO Last administered on 02/04/21at 12:06; Start 02/04/21 at 12:00 Active Scripts Active Reported Vitamin D3 (Vitamin D) 25 Mcg Tablet 25 Mcg PO DAILY 1,000 UNITS = 25 MCG Vitamin C (Ascorbic Acid) 500 Mg Capsule.er 2 Cap PO DAILY 30 Days Ocuvite Lutein 25-5 mg Softgel (Lutein/Zeaxanthin) 1 Each Capsule 1 Cap PO DAILY 30 Days Zinc 50 Mg Tablet 100 Mg PO DAILY Daily Value (Multivitamin) 1 Each Tablet 1 Tab PO DAILY 30 Days Acetaminophen 325 Mg Tablet 325 Mg PO PRN Q4HRS PRN Ibuprofen 600 Mg Tablet 600 Mg PO PRN Q6HRS PRN Nexium Capsule (Esomeprazole Magnesium) 40 Mg Capsule.dr 40 Mg PO DAILYAC Fluticasone Propionate Nasal Buckley (Fluticasone Propionate) 16 Gm Buckley.susp 2 Buckley NS DAILY Toprol Xl (Metoprolol Succinate) 25 Mg Tab.er.24h 25 Mg PO DAILY Losartan Potassium 100 Mg Tablet 100 Mg PO DAILY Synthroid (Levothyroxine Sodium) 137 Mcg Tablet 137 Mcg PO DAILYAC Allergies Allergies: Coded Allergies: Penicillins (Verified Allergy, Intermediate, 10/25/19) Sulfa (Sulfonamide Antibiotics) (Verified Allergy, Intermediate, 10/25/19) propylene glycol (Verified Allergy, Intermediate, 10/25/19) ROS Review of System Negative for fever, chills, weight loss, shortness of breath, chest pain, indigestion, hematochezia, melena, and dysuria. Full 14-point review of systems is negative. Physical Exam Physical Examination General: Well-developed, well-nourished, white female, in no acute distress HEENT: Normocephalic andatraumatic. Temporal arteriespulsatile and nontender. Neck: Supple without bruit, no meningismus Musculoskeletal: Stability:see neurologic. Gait exam:see neurologic. Tone:see neurologic.Strength:see neurologic. Neurological: Mental Status:intact, orientation, memory, attention span/concentration, language, fund of knowledge normal, just a little slow on details of her history and with naming. Cranial Nerves:Pupils equal and reactive to light, extraocular movements areintact, visual crawley are full to confrontation. Facial sensation is normal. There is no facial asymmetry. Vestibulo-ocular reflex is intact. Palate elevates and tongue protrudes in midline. All other cranial related problems are negative except as mentioned before.Reflexes:2+ and symmetric with flexor plantar responses. Motor:5/5 strength with normal tone and bulk. Coordination:Finger-nose finger and [id number] testing are normal. Rapid alternating movements and fine finger movements are intact. Gait:A little unsteady. Sensory:Normal pinprick, vibration, light touch, proprioception. Vitals VITALS Vital Signs Date Time Temp Pulse Resp B/P (MAP) Pulse Ox O2 Delivery O2 Flow Rate FiO2 02/04/21 12:09 98.0 87 19 173/83 (113) 92 Room Air 98.0 Labs Labs Laboratory Tests Test 02/03/21 15:15 02/04/21 03:45 02/04/21 08:50 White Blood Count 7.7 x10^3/uL (4.0-11.0) 7.4 x10^3/uL (4.0-11.0) Red Blood Count 4.36 x10^6/uL (3.50-5.40) 4.25 x10^6/uL (3.50-5.40) Hemoglobin 13.9 g/dL (12.0-15.5) 13.5 g/dL (12.0-15.5) Hematocrit 40.7 % (36.0-47.0) 39.6 % (36.0-47.0) Mean Corpuscular Volume 94 fL (79-100) 93 fL (79-100) Mean Corpuscular Hemoglobin 32 pg (25-35) 32 pg (25-35) Mean Corpuscular Hemoglobin Concent 34 g/dL (31-37) 34 g/dL (31-37) Red Cell Distribution Width 14.5 % (11.5-14.5) 14.6 % (11.5-14.5) Platelet Count 228 x10^3/uL (140-400) 192 x10^3/uL (140-400) Neutrophils (%) (Auto) 73 % (31-73) 70 % (31-73) Lymphocytes (%) (Auto) 18 % (24-48) 20 % (24-48) Monocytes (%) (Auto) 7 % (0-9) 8 % (0-9) Eosinophils (%) (Auto) 2 % (0-3) 2 % (0-3) Basophils (%) (Auto) 1 % (0-3) 1 % (0-3) Neutrophils # (Auto) 5.6 x10^3/uL (1.8-7.7) 5.2 x10^3/uL (1.8-7.7) Lymphocytes # (Auto) 1.4 x10^3/uL (1.0-4.8) 1.5 x10^3/uL (1.0-4.8) Monocytes # (Auto) 0.5 x10^3/uL (0.0-1.1) 0.6 x10^3/uL (0.0-1.1) Eosinophils # (Auto) 0.1 x10^3/uL (0.0-0.7) 0.1 x10^3/uL (0.0-0.7) Basophils # (Auto) 0.1 x10^3/uL (0.0-0.2) 0.1 x10^3/uL (0.0-0.2) Sodium Level 138 mmol/L (136-145) 138 mmol/L (136-145) Potassium Level 4.1 mmol/L (3.5-5.1) 3.9 mmol/L (3.5-5.1) Chloride Level 102 mmol/L (98-107) 103 mmol/L (98-107) Carbon Dioxide Level 30 mmol/L (21-32) 27 mmol/L (21-32) Anion Gap 6 (6-14) 8 (6-14) Blood Urea Nitrogen 14 mg/dL (7-20) 11 mg/dL (7-20) Creatinine 0.9 mg/dL (0.6-1.0) 0.8 mg/dL (0.6-1.0) Estimated GFR (Cockcroft-Gault) 60.4 69.2 Glucose Level 113 mg/dL (70-99) 100 mg/dL (70-99) Calcium Level 8.9 mg/dL (8.5-10.1) 8.4 mg/dL (8.5-10.1) Triglycerides Level 98 mg/dL (0-150) Cholesterol Level 149 mg/dL (0-200) LDL Cholesterol, Calculated 77 mg/dL (0-100) VLDL Cholesterol, Calculated 20 mg/dL (0-40) Non-HDL Cholesterol Calculated 97 mg/dL (0-129) HDL Cholesterol 52 mg/dL (40-60) Cholesterol/HDL Ratio 2.9 Thyroid Stimulating Hormone (TSH) 0.284 uIU/mL (0.358-3.74) Free Thyroxine 1.49 ng/dL (0.76-1.46) Phosphorus Level 3.7 mg/dL (2.6-4.7) Magnesium Level 1.7 mg/dL (1.8-2.4) Urine Collection Type Unknown Urine Color Yellow Urine Clarity Clear Urine pH 7.0 (<5.0-8.0) Urine Specific [place] 1.010 (1.000-1.030) Urine Protein Negative mg/dL (NEG-TRACE) Urine Glucose (UA) Negative mg/dL (NEG) Urine Ketones (Stick) Negative mg/dL (NEG) Urine Blood Negative (NEG) Urine Nitrite Negative (NEG) Urine Bilirubin Negative (NEG) Urine Urobilinogen Dipstick 0.2 mg/dL (0.2 mg/dL) Urine Leukocyte Esterase Negative (NEG) Urine RBC 0 /HPF (0-2) Urine WBC 0 /HPF (0-4) Urine Squamous Epithelial Cells Occ /LPF Urine Bacteria 0 /HPF (0-FEW) Laboratory Tests Test 02/03/21 15:15 02/04/21 03:45 02/04/21 08:50 White Blood Count 7.7 x10^3/uL (4.0-11.0) 7.4 x10^3/uL (4.0-11.0) Red Blood Count 4.36 x10^6/uL (3.50-5.40) 4.25 x10^6/uL (3.50-5.40) Hemoglobin 13.9 g/dL (12.0-15.5) 13.5 g/dL (12.0-15.5) Hematocrit 40.7 % (36.0-47.0) 39.6 % (36.0-47.0) Mean Corpuscular Volume 94 fL (79-100) 93 fL (79-100) Mean Corpuscular Hemoglobin 32 pg (25-35) 32 pg (25-35) Mean Corpuscular Hemoglobin Concent 34 g/dL (31-37) 34 g/dL (31-37) Red Cell Distribution Width 14.5 % (11.5-14.5) 14.6 % (11.5-14.5) Platelet Count 228 x10^3/uL (140-400) 192 x10^3/uL (140-400) Neutrophils (%) (Auto) 73 % (31-73) 70 % (31-73) Lymphocytes (%) (Auto) 18 % (24-48) 20 % (24-48) Monocytes (%) (Auto) 7 % (0-9) 8 % (0-9) Eosinophils (%) (Auto) 2 % (0-3) 2 % (0-3) Basophils (%) (Auto) 1 % (0-3) 1 % (0-3) Neutrophils # (Auto) 5.6 x10^3/uL (1.8-7.7) 5.2 x10^3/uL (1.8-7.7) Lymphocytes # (Auto) 1.4 x10^3/uL (1.0-4.8) 1.5 x10^3/uL (1.0-4.8) Monocytes # (Auto) 0.5 x10^3/uL (0.0-1.1) 0.6 x10^3/uL (0.0-1.1) Eosinophils # (Auto) 0.1 x10^3/uL (0.0-0.7) 0.1 x10^3/uL (0.0-0.7) Basophils # (Auto) 0.1 x10^3/uL (0.0-0.2) 0.1 x10^3/uL (0.0-0.2) Sodium Level 138 mmol/L (136-145) 138 mmol/L (136-145) Potassium Level 4.1 mmol/L (3.5-5.1) 3.9 mmol/L (3.5-5.1) Chloride Level 102 mmol/L (98-107) 103 mmol/L (98-107) Carbon Dioxide Level 30 mmol/L (21-32) 27 mmol/L (21-32) Anion Gap 6 (6-14) 8 (6-14) Blood Urea Nitrogen 14 mg/dL (7-20) 11 mg/dL (7-20) Creatinine 0.9 mg/dL (0.6-1.0) 0.8 mg/dL (0.6-1.0) Estimated GFR (Cockcroft-Gault) 60.4 69.2 Glucose Level 113 mg/dL (70-99) 100 mg/dL (70-99) Calcium Level 8.9 mg/dL (8.5-10.1) 8.4 mg/dL (8.5-10.1) Triglycerides Level 98 mg/dL (0-150) Cholesterol Level 149 mg/dL (0-200) LDL Cholesterol, Calculated 77 mg/dL (0-100) VLDL Cholesterol, Calculated 20 mg/dL (0-40) Non-HDL Cholesterol Calculated 97 mg/dL (0-129) HDL Cholesterol 52 mg/dL (40-60) Cholesterol/HDL Ratio 2.9 Thyroid Stimulating Hormone (TSH) 0.284 uIU/mL (0.358-3.74) Free Thyroxine 1.49 ng/dL (0.76-1.46) Phosphorus Level 3.7 mg/dL (2.6-4.7) Magnesium Level 1.7 mg/dL (1.8-2.4) Urine Collection Type Unknown Urine Color Yellow Urine Clarity Clear Urine pH 7.0 (<5.0-8.0) Urine Specific [place] 1.010 (1.000-1.030) Urine Protein Negative mg/dL (NEG-TRACE) Urine Glucose (UA) Negative mg/dL (NEG) Urine Ketones (Stick) Negative mg/dL (NEG) Urine Blood Negative (NEG) Urine Nitrite Negative (NEG) Urine Bilirubin Negative (NEG) Urine Urobilinogen Dipstick 0.2 mg/dL (0.2 mg/dL) Urine Leukocyte Esterase Negative (NEG) Urine RBC 0 /HPF (0-2) Urine WBC 0 /HPF (0-4) Urine Squamous Epithelial Cells Occ /LPF Urine Bacteria 0 /HPF (0-FEW) Images Images CT head Findings: Calcified plaque intracranial arteries. No intracranial hemorrhage, mass, hydrocephalus, extra-axial fluid collections or infarction. There is loss of doss matter differentiation with cortical and white matter hypodensity involving the left anterior insular ribbon and frontal opercular cortex. This is concerning for acute left MCA territory ischemic changes. Orbits, mastoids and bones are unremarkable. IMPRESSION: No intracranial hemorrhage or mass. Hypodensity of the left frontal lobe cortex and underlying white matter, and insular cortex, with loss of doss/white matter differential density, concerning for acute left MCA territory ischemic changes. CTA NECK: Visualized portions of thoracic aorta are unremarkable. Standard three-vessel aortic arch anatomy. Right common carotid artery is patent without evidence of stenosis, occlusion or aneurysm. Cervical segment of the right internal carotid artery is patent withou t evidence of stenosis, occlusion or aneurysm. Minimal plaque at the origin of the right internal carotid artery without significant stenosis. Left common carotid artery is patent without evidence of stenosis, occlusion or aneurysm. There is minimal plaque at the origin of the left internal carotid artery without significant stenosis. Right vertebral artery is patent to the basilar confluence without evidence of stenosis, occlusion or aneurysm. Left vertebral artery is patent to basilar confluence without evidence of stenosis, occlusion or aneurysm. Moderate centrilobular emphysematous change noted at the upper lobes. CTA HEAD: Minimal calcified plaque at the cavernous segment of the right internal carotid artery velocity stenosis. Right MCA is patent. Right SAW is patent. Minimal calcified plaque at the cavernous segment left internal carotid artery without significant stenosis. Left MCA is patent. Left SAW is patent. Basilar artery is patent without evidence of stenosis, occlusion or aneurysm. district wildlife manager are patent bilaterally. IMPRESSION: 1. No large vessel occlusion. 2. Minimal plaque at the origin of the internal carotid arteries bilaterally without significant stenosis. 3. Minimal plaque at the cavernous segments of the internal carotid arteries bilaterally without significant stenosis. 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 There has also been some cognitive issues since a head injury 11 months ago so we need to keep in mind that this is edema from the injury or even a neoplasm. As discussed with Dr. Villalobos yesterday and confirmed by stroke neurologist, Dr. Waggoner, she was not a candidate for interventional radiology or alteplase. Atrial fibrillation, has been on apixaban Recommendations: MRI of the brain, okay to wait until tomorrow Echocardiogram Aspirin, hold because she was on apixaban today; hold apixaban for a day or 2 to make sure there is no hemorrhagic transformation Check lipids Rehabilitation modalities Also see stroke orders Discussed with patient and daughter. Thank you for letting me help the patient's care. ENE ALEGRE MD Feb 04, 2021 14:43
[2021-02-04] MEDS ORDERED: ENOXAPARIN 40 MG/0.4 ML SYRINGE. SQ SCH (18:00)
[2021-02-04] MEDS ORDERED: ATORVASTATIN CALCIUM 40 MG TABLET. PO SCH (21:00)
[2021-02-05] MEDS: IV NORMAL SALINE 1000ML BAG 1,000 ML IV SCH ×2 (01:43→10:31)
[2021-02-05 02:55] VITALS: BP 187/92
[2021-02-05] MEDS: LEVOTHYROXINE 125 MCG TABLET PO SCH (06:14)
[2021-02-05 06:53] LABS: BASO # 0.1 x10^3/uL (0.0-0.2); BASO % 1 % (0-3); EOS # 0.2 x10^3/uL (0.0-0.7); EOS % 2 % (0-3); HEMOGLOBIN 14.1 g/dL (12.0-15.5); LYMPH # 1.7 x10^3/uL (1.0-4.8); LYMPH % 22 % (24-48); MEAN CORPUSCULAR HEMOGLOBIN 32 pg (25-35); MEAN CORPUSCULAR HGB CONC 34 g/dL (31-37); MEAN CORPUSCULAR VOLUME 93 fL (79-100); MONO # 0.6 x10^3/uL (0.0-1.1); MONO % 7 % (0-9); NEUT # 5.4 x10^3/uL (1.8-7.7); NEUT % 68 % (31-73); PLATELET COUNT 196 x10^3/uL (140-400); RED BLOOD COUNT 4.41 x10^6/uL (3.50-5.40); RED CELL DISTRIBUTION WIDTH 14.5 % (11.5-14.5); WHITE BLOOD COUNT 7.9 x10^3/uL (4.0-11.0)
[2021-02-05 07:00] VITALS: BP 180/97
[2021-02-05 07:00] LABS: CALCIUM 8.7 mg/dL (8.5-10.1); CREATININE 0.7 mg/dL (0.6-1.0); GFR 80.7; MAGNESIUM 1.9 mg/dL (1.8-2.4); POTASSIUM 3.7 mmol/L (3.5-5.1)
[2021-02-05] MEDS: LOSARTAN POTASSIUM 50 MG TABLET. PO SCH ×2 (08:00→20:42)
[2021-02-05] MEDS: PANTOPRAZOLE 40 MG TABLET.DR. PO SCH (08:00)
[2021-02-05] MEDS: METOPROLOL TART IMMED RELEASE 25 MG TABLET. PO SCH ×2 (08:00→20:36)
[2021-02-05] MEDS: ZINC SULFATE 220 MG CAPSULE. PO SCH (08:00)
[2021-02-05] MEDS: MULTIVITAMIN with MINERAL TABLET. PO SCH (08:00)
[2021-02-05] MEDS: FLUTICASONE 50MCG/NASAL SPRAY 16GM BOTTLE. NS SCH (08:01)
--- NOTE | 2021-02-05 09:20 | PDOC ---
PROGRESS NOTES Date of Service DATE: 02/05/21 TIME: 09:16 Assessment Problems Medical Problems: (1) Acute ischemic left MCA stroke Status: Acute Clinically a transient ischemic attack, but CT findings of left middle cerebral artery stroke and the CT angiogram shows left middle cerebral artery lesion in the M2 segment. There has also been some cognitive issues since a head injury 11 months ago, possible mild dementia. Atrial fibrillation, has been on apixaban, holding until we get the MRI results Favorable lipid profile Note abnormal thyroid function testing, management per internal medicine Plan MRI of the brain Echocardiogram Holding aspirin and apixaban Discontinue atorvastatin given favorable lipids Rehabilitation modalities Check B12 and sedimentation rate Subjective No complaints Objective Vital Signs Date Time Temp Pulse Resp B/P (MAP) Pulse Ox O2 Delivery O2 Flow Rate FiO2 02/05/21 08:00 83 187/92 02/05/21 07:00 98.1 18 91 Room Air 98.1 Intake and Output 02/05/21 07:00 Intake Total 480 ml Balance 480 ml Intake Oral 480 ml # Voids 5 PHYSICAL EXAM Alert. Oriented to time, place and person. A little confused with her history, mixes up this examiner with other physicians PERRL. EOMI. CN: no focal findings. Muscle tone: normal. Muscle strength: 5/5 DTR: 2+ Plantar reflex: Flexor Gait: not examined in bed. Sensory exam: no abnormal findings. No cerebellar signs elicited. Review of Relevant I have reviewed the following items jer (where applicable) has been applied. Labs Laboratory Tests Test 02/03/21 15:15 02/04/21 03:45 02/04/21 08:50 02/05/21 05:20 White Blood Count 7.7 x10^3/uL (4.0-11.0) 7.4 x10^3/uL (4.0-11.0) 7.9 x10^3/uL (4.0-11.0) Red Blood Count 4.36 x10^6/uL (3.50-5.40) 4.25 x10^6/uL (3.50-5.40) 4.41 x10^6/uL (3.50-5.40) Hemoglobin 13.9 g/dL (12.0-15.5) 13.5 g/dL (12.0-15.5) 14.1 g/dL (12.0-15.5) Hematocrit 40.7 % (36.0-47.0) 39.6 % (36.0-47.0) 41.0 % (36.0-47.0) Mean Corpuscular Volume 94 fL (79-100) 93 fL (79-100) 93 fL (79-100) Mean Corpuscular Hemoglobin 32 pg (25-35) 32 pg (25-35) 32 pg (25-35) Mean Corpuscular Hemoglobin Concent 34 g/dL (31-37) 34 g/dL (31-37) 34 g/dL (31-37) Red Cell Distribution Width 14.5 % (11.5-14.5) 14.6 % (11.5-14.5) 14.5 % (11.5-14.5) Platelet Count 228 x10^3/uL (140-400) 192 x10^3/uL (140-400) 196 x10^3/uL (140-400) Neutrophils (%) (Auto) 73 % (31-73) 70 % (31-73) 68 % (31-73) Lymphocytes (%) (Auto) 18 % (24-48) 20 % (24-48) 22 % (24-48) Monocytes (%) (Auto) 7 % (0-9) 8 % (0-9) 7 % (0-9) Eosinophils (%) (Auto) 2 % (0-3) 2 % (0-3) 2 % (0-3) Basophils (%) (Auto) 1 % (0-3) 1 % (0-3) 1 % (0-3) Neutrophils # (Auto) 5.6 x10^3/uL (1.8-7.7) 5.2 x10^3/uL (1.8-7.7) 5.4 x10^3/uL (1.8-7.7) Lymphocytes # (Auto) 1.4 x10^3/uL (1.0-4.8) 1.5 x10^3/uL (1.0-4.8) 1.7 x10^3/uL (1.0-4.8) Monocytes # (Auto) 0.5 x10^3/uL (0.0-1.1) 0.6 x10^3/uL (0.0-1.1) 0.6 x10^3/uL (0.0-1.1) Eosinophils # (Auto) 0.1 x10^3/uL (0.0-0.7) 0.1 x10^3/uL (0.0-0.7) 0.2 x10^3/uL (0.0-0.7) Basophils # (Auto) 0.1 x10^3/uL (0.0-0.2) 0.1 x10^3/uL (0.0-0.2) 0.1 x10^3/uL (0.0-0.2) Sodium Level 138 mmol/L (136-145) 138 mmol/L (136-145) 138 mmol/L (136-145) Potassium Level 4.1 mmol/L (3.5-5.1) 3.9 mmol/L (3.5-5.1) 3.7 mmol/L (3.5-5.1) Chloride Level 102 mmol/L (98-107) 103 mmol/L (98-107) 104 mmol/L (98-107) Carbon Dioxide Level 30 mmol/L (21-32) 27 mmol/L (21-32) 24 mmol/L (21-32) Anion Gap 6 (6-14) 8 (6-14) 10 (6-14) Blood Urea Nitrogen 14 mg/dL (7-20) 11 mg/dL (7-20) 10 mg/dL (7-20) Creatinine 0.9 mg/dL (0.6-1.0) 0.8 mg/dL (0.6-1.0) 0.7 mg/dL (0.6-1.0) Estimated GFR (Cockcroft-Gault) 60.4 69.2 80.7 Glucose Level 113 mg/dL (70-99) 100 mg/dL (70-99) 102 mg/dL (70-99) Calcium Level 8.9 mg/dL (8.5-10.1) 8.4 mg/dL (8.5-10.1) 8.7 mg/dL (8.5-10.1) Triglycerides Level 98 mg/dL (0-150) Cholesterol Level 149 mg/dL (0-200) LDL Cholesterol, Calculated 77 mg/dL (0-100) VLDL Cholesterol, Calculated 20 mg/dL (0-40) Non-HDL Cholesterol Calculated 97 mg/dL (0-129) HDL Cholesterol 52 mg/dL (40-60) Cholesterol/HDL Ratio 2.9 Thyroid Stimulating Hormone (TSH) 0.284 uIU/mL (0.358-3.74) Free Thyroxine 1.49 ng/dL (0.76-1.46) Phosphorus Level 3.7 mg/dL (2.6-4.7) Magnesium Level 1.7 mg/dL (1.8-2.4) 1.9 mg/dL (1.8-2.4) Urine Collection Type Unknown Urine Color Yellow Urine Clarity Clear Urine pH 7.0 (<5.0-8.0) Urine Specific [place] 1.010 (1.000-1.030) Urine Protein Negative mg/dL (NEG-TRACE) Urine Glucose (UA) Negative mg/dL (NEG) Urine Ketones (Stick) Negative mg/dL (NEG) Urine Blood Negative (NEG) Urine Nitrite Negative (NEG) Urine Bilirubin Negative (NEG) Urine Urobilinogen Dipstick 0.2 mg/dL (0.2 mg/dL) Urine Leukocyte Esterase Negative (NEG) Urine RBC 0 /HPF (0-2) Urine WBC 0 /HPF (0-4) Urine Squamous Epithelial Cells Occ /LPF Urine Bacteria 0 /HPF (0-FEW) Laboratory Tests Test 02/05/21 05:20 White Blood Count 7.9 x10^3/uL (4.0-11.0) Red Blood Count 4.41 x10^6/uL (3.50-5.40) Hemoglobin 14.1 g/dL (12.0-15.5) Hematocrit 41.0 % (36.0-47.0) Mean Corpuscular Volume 93 fL (79-100) Mean Corpuscular Hemoglobin 32 pg (25-35) Mean Corpuscular Hemoglobin Concent 34 g/dL (31-37) Red Cell Distribution Width 14.5 % (11.5-14.5) Platelet Count 196 x10^3/uL (140-400) Neutrophils (%) (Auto) 68 % (31-73) Lymphocytes (%) (Auto) 22 % (24-48) Monocytes (%) (Auto) 7 % (0-9) Eosinophils (%) (Auto) 2 % (0-3) Basophils (%) (Auto) 1 % (0-3) Neutrophils # (Auto) 5.4 x10^3/uL (1.8-7.7) Lymphocytes # (Auto) 1.7 x10^3/uL (1.0-4.8) Monocytes # (Auto) 0.6 x10^3/uL (0.0-1.1) Eosinophils # (Auto) 0.2 x10^3/uL (0.0-0.7) Basophils # (Auto) 0.1 x10^3/uL (0.0-0.2) Sodium Level 138 mmol/L (136-145) Potassium Level 3.7 mmol/L (3.5-5.1) Chloride Level 104 mmol/L (98-107) Carbon Dioxide Level 24 mmol/L (21-32) Anion Gap 10 (6-14) Blood Urea Nitrogen 10 mg/dL (7-20) Creatinine 0.7 mg/dL (0.6-1.0) Estimated GFR (Cockcroft-Gault) 80.7 Glucose Level 102 mg/dL (70-99) Calcium Level 8.7 mg/dL (8.5-10.1) Magnesium Level 1.9 mg/dL (1.8-2.4) Medications Current Medications Iohexol (Omnipaque 300 Mg/ml) 75 ml 1X ONCE IV ; Start 02/03/21 at 16:15; Stop 02/03/21 at 16:16; Status DC Info (CONTRAST GIVEN -- Rx MONITORING) 1 each PRN DAILY PRN MC SEE COMMENTS; Start 02/03/21 at 16:15; Stop 02/05/21 at 16:14 Aspirin (Allison Aspirin) 325 mg 1X ONCE PO Last administered on 02/03/21at 17:47; Start 02/03/21 at 16:30; Stop 02/03/21 at 16:31; Status DC Ondansetron HCl (Zofran) 4 mg PRN Q8HRS PRN IVP NAUSEA/VOMITING; Start 02/03/21 at 16:30; Stop 02/04/21 at 16:29; Status DC Acetaminophen (Tylenol) 650 mg PRN Q4HRS PRN PO FEVER > 100.3'F Last administered on 02/04/21at 15:23; Start 02/03/21 at 16:30; Stop 02/04/21 at 16:29; Status DC Sennosides (Senna) 17.2 mg PRN BID PRN PO CONSTIPATION; Start 02/03/21 at 18:00 Docusate Sodium (Colace) 100 mg PRN DAILY PRN PO HARD STOOLS; Start 02/03/21 at 18:00 Ondansetron HCl (Zofran) 4 mg PRN Q6HRS PRN IVP NAUSEA/VOMITING; Start 02/03/21 at 18:00 Dextrose (Dextrose 50%-Water Syringe) 12.5 gm PRN Q15MIN PRN IV SEE COMMENTS; Start 02/03/21 at 18:00 Sodium Chloride 1,000 ml @ 100 mls/hr Q10H IV Last administered on 02/05/21at 01:43; Start 02/03/21 at 18:00 Acetaminophen (Tylenol) 650 mg PRN Q4HRS PRN PO TEMP OVER 100.4F OR MILD PAIN; Start 02/03/21 at 18:00 Lorazepam (Ativan) 0.5 mg PRN Q6HRS PRN PO ANXIETY / AGITATION; Start 02/03/21 at 18:00 Lorazepam (Ativan Inj) 0.25 mg PRN Q4HRS PRN IV ANXIETY / AGITATION; Start 02/03/21 at 18:00 Enoxaparin Sodium (Lovenox 40mg Syringe) 40 mg Q24H SQ ; Start 02/04/21 at 18:00; Stop 02/03/21 at 23:51; Status DC Prochlorperazine Edisylate (Compazine) 10 mg PRN Q6HRS PRN IV NAUSEA/VOMITING; Start 02/03/21 at 18:00 Zolpidem Tartrate (Ambien) 2.5 mg PRN QHS PRN PO INSOMNIA; Start 02/03/21 at 18:00 Pantoprazole Sodium (Protonix) 40 mg DAILYAC PO Last administered on 02/05/21at 08:00; Start 02/04/21 at 07:30 Levothyroxine Sodium (Synthroid) 137 mcg DAILY06 PO Last administered on 02/04/21at 05:32; Start 02/04/21 at 06:00; Stop 02/04/21 at 09:09; Status DC Metoprolol Tartrate (Lopressor) 12.5 mg BID PO Last administered on 02/05/21at 08:00; Start 02/03/21 at 23:00 Labetalol HCl (Normodyne Iv Push) 10 mg PRN Q2HR PRN IVP HYPERTENSION Last administered on 02/04/21at 14:55; Start 02/03/21 at 22:15 Apixaban (Eliquis) 2.5 mg BID PO Last administered on 02/04/21at 08:16; Start 02/04/21 at 00:00; Stop 02/04/21 at 15:03; Status DC Info (Anti-Coagulation Monitoring By Pharmacy) 1 each PRN DAILY PRN MC PER PROTOCOL Last administered on 02/04/21at 01:51; Start 02/03/21 at 23:45 Levothyroxine Sodium (Synthroid) 125 mcg DAILY06 PO Last administered on 02/05/21 06:14; Start 02/05/21 at 06:00 Losartan Potassium (Cozaar) 50 mg BID PO Last administered on 02/05/21at 08:00; Start 02/04/21 at 11:30 Fluticasone Propionate (Flonase) 2 spray DAILY NS Last administered on 02/05/21 08:01; Start 02/04/21 at 12:00 Multivitamins (Thera M Plus) 1 tab DAILY PO Last administered on 02/05/21at 08:00; Start 02/04/21 at 12:00 Zinc Sulfate (Orazinc) 220 mg DAILY PO Last administered on 02/05/21at 08:00; Start 02/04/21 at 12:00 Atorvastatin Calcium (Lipitor) 80 mg QHS PO Last administered on 02/04/21at 20:24; Start 02/04/21 at 21:00 Active Scripts Active Reported Vitamin D3 (Vitamin D) 25 Mcg Tablet 25 Mcg PO DAILY 1,000 UNITS = 25 MCG Vitamin C (Ascorbic Acid) 500 Mg Capsule.er 2 Cap PO DAILY 30 Days Ocuvite Lutein 25-5 mg Softgel (Lutein/Zeaxanthin) 1 Each Capsule 1 Cap PO DAILY 30 Days Zinc 50 Mg Tablet 100 Mg PO DAILY Daily Value (Multivitamin) 1 Each Tablet 1 Tab PO DAILY 30 Days Acetaminophen 325 Mg Tablet 325 Mg PO PRN Q4HRS PRN Ibuprofen 600 Mg Tablet 600 Mg PO PRN Q6HRS PRN Nexium Capsule (Esomeprazole Magnesium) 40 Mg Capsule.dr 40 Mg PO DAILYAC Fluticasone Propionate Nasal [place] (Fluticasone Propionate) 16 Gm Lorton.susp 2 [place]orton NS DAILY Toprol Xl (Metoprolol Succinate) 25 Mg Tab.er.24h 25 Mg PO DAILY Losartan Potassium 100 Mg Tablet 100 Mg PO DAILY Synthroid (Levothyroxine Sodium) 137 Mcg Tablet 137 Mcg PO DAILYAC Vitals/I & O Vital Sign - Last 24 Hours 02/04/21 02/04/21 02/04/21 02/04/21 09:27 10:25 12:07 12:09 Temp 98.0 98.0 Pulse 83 82 86 87 Resp 19 B/P (MAP) 186/100 158/62 (94) 173/83 173/83 (113) Pulse Ox 92 O2 Delivery Room Air 02/04/21 02/04/21 02/04/21 02/04/21 14:44 14:55 19:21 19:46 Temp 98.7 98.0 98.7 98.0 Pulse 81 81 85 Resp 19 16 B/P (MAP) 182/121 (141) 182/121 141/60 (87) Pulse Ox 91 99 O2 Delivery Room Air Room Air Room Air 02/04/21 02/04/21 02/04/21 02/05/21 20:24 20:25 22:38 02:55 Temp 98.3 97.6 98.3 97.6 Pulse 85 85 85 83 Resp 16 18 B/P (MAP) 141/60 141/60 143/61 (88) 187/92 (123) Pulse Ox 100 98 O2 Delivery Room Air Room Air 02/05/21 02/05/21 02/05/21 07:00 08:00 08:00 Temp 98.1 98.1 Pulse 78 85 83 Resp 18 B/P (MAP) 180/97 (124) 180/97 187/92 Pulse Ox 91 O2 Delivery Room Air Intake and Output 02/04/21 02/04/21 02/05/21 15:00 23:00 07:00 Intake Total 480 ml 0 ml Balance 480 ml 0 ml Justicifation of Admission Dx: Justifications for Admission: Justification of Admission Dx: N/A ENE ALEGRE MD Feb 05, 2021 09:20
--- NOTE | 2021-02-05 09:58 | NUR ---
Assumed pt care at this time. Pt in bed with family at bedside. Call light within reach.
[2021-02-05] MEDS: ACETAMINOPHEN 325 MG TABLET. PO PRN (10:31)
[2021-02-05 11:00] VITALS: BP 195/97
--- NOTE | 2021-02-05 12:06 | NUR ---
SS following for discharge planning. SS reviewed pt chart and discussed with pt RN. Pt is from home and is currently on room air. Neurology following. PO diet. Pt having MRI and ECHO today. PT/OT recommended home with home healthcare. SS met with pt and daughter in room and discussed discharge planning and home healthcare. Pt agreeable to home healthcare with no preference of company. Referral sent to [facility], ; fax [phone]. SS will continue to follow for discharge planning.
--- NOTE | 2021-02-05 12:33 | PDOC ---
[employer] PROGRESS NOTE Date of Service DOS: DATE: 02/05/21 TIME: 12:31 Chief Complaint Chief Complaint Left MCA stroke, rapid recovery Hypertensive emergency History of Graves' disease History of sleep apnea History of COPD History of GERD mild dementia. chronic diastolic CHF with Atrial fibrillation, on apixaban, History of Present Illness History of Present Illness Echocardiogram pending, held aspirin and apixaban may resume Check B12 and sedimentation rate PT and OT and speech, Vitals/I&O Vitals/I&O: Vital Signs Date Time Temp Pulse Resp B/P (MAP) Pulse Ox O2 Delivery O2 Flow Rate FiO2 02/05/21 11:00 97.7 85 18 195/97 (129) 93 Nasal Cannula 97.7 I & O 02/04/21 02/04/21 02/05/21 15:00 23:00 07:00 Intake Total 480 ml 0 ml Balance 480 ml 0 ml Labs Labs: Laboratory Tests Test 02/05/21 05:20 White Blood Count 7.9 x10^3/uL (4.0-11.0) Red Blood Count 4.41 x10^6/uL (3.50-5.40) Hemoglobin 14.1 g/dL (12.0-15.5) Hematocrit 41.0 % (36.0-47.0) Mean Corpuscular Volume 93 fL (79-100) Mean Corpuscular Hemoglobin 32 pg (25-35) Mean Corpuscular Hemoglobin Concent 34 g/dL (31-37) Red Cell Distribution Width 14.5 % (11.5-14.5) Platelet Count 196 x10^3/uL (140-400) Neutrophils (%) (Auto) 68 % (31-73) Lymphocytes (%) (Auto) 22 % (24-48) Monocytes (%) (Auto) 7 % (0-9) Eosinophils (%) (Auto) 2 % (0-3) Basophils (%) (Auto) 1 % (0-3) Neutrophils # (Auto) 5.4 x10^3/uL (1.8-7.7) Lymphocytes # (Auto) 1.7 x10^3/uL (1.0-4.8) Monocytes # (Auto) 0.6 x10^3/uL (0.0-1.1) Eosinophils # (Auto) 0.2 x10^3/uL (0.0-0.7) Basophils # (Auto) 0.1 x10^3/uL (0.0-0.2) Sodium Level 138 mmol/L (136-145) Potassium Level 3.7 mmol/L (3.5-5.1) Chloride Level 104 mmol/L (98-107) Carbon Dioxide Level 24 mmol/L (21-32) Anion Gap 10 (6-14) Blood Urea Nitrogen 10 mg/dL (7-20) Creatinine 0.7 mg/dL (0.6-1.0) Estimated GFR (Cockcroft-Gault) 80.7 Glucose Level 102 mg/dL (70-99) Calcium Level 8.7 mg/dL (8.5-10.1) Magnesium Level 1.9 mg/dL (1.8-2.4) Assessment and Plan Assessmemt and Plan Problems Medical Problems: (1) Acute ischemic left MCA stroke Status: Acute Comment Review of Relevant I have reviewed the following items jer (where applicable) has been applied. Medications: Current Medications Medications (Trade) Dose Ordered Sig/Sosa Route PRN Reason Start Time Stop Time Status Last Admin Dose Admin Levothyroxine Sodium (Synthroid) 125 mcg DAILY06 PO 02/05/21 06:00 02/05/21 06:14 Atorvastatin Calcium (Lipitor) 80 mg QHS PO 02/04/21 21:00 02/05/21 09:20 DC 02/04/21 20:24 Justifications for Admission Other Justification Left MCA stroke ES STOUT MD Feb 05, 2021 12:33
[2021-02-05 15:00] VITALS: BP 191/92
[2021-02-05] MEDS: LABETALOL 20 MG/4 ML DISP.SYRIN. IVP PRN ×2 (16:12→23:03)
--- NOTE | 2021-02-05 16:15 | RAD ---
EXAMINATION: MRI brain without IV contrast INDICATION: Left MCA stroke COMPARISON: CT dated 02/03/2021 TECHNIQUE: MRI of the brain was performed using high-resolution multiplanar multisequence imaging. FINDINGS: There is restricted diffusion in the left frontal lobe distribution of left MCA The area is bright on the T2/FLAIR images, with associated parenchymal swelling. There is no evidence of hemorrhagic trans formation at this time. There is a moderate brain parenchymal volume loss. Mild supratentorial periventricular T2/FLAIR hyper intense foci, indeterminate but most likely representing chronic microangiopathic disease. No ventric ular dilatation. No extra-axial fluid collection. Minimal fluid seen in both mastoid air cells. Paran evi sinuses and mastoid air cells are clear. The orbital contents appear within normal limits. IMPRESSION: Acute on subacute infarct in the left frontal lobe along the left MCA distribution. No evidence of he morrhagic transformation at this time. Electronically signed by: Gabriel Schneider MD (02/05/2021 4:12 PM) [id number]
--- NOTE | 2021-02-05 17:59 | CARD ---
MR#: [id number] Date of Study: 02/05/2021 Ordering Physician: ENE ALEGRE, Referring Physician: ENE ALEGRE, Tech: Florecita Menjivar [facility] APPROVED REPORT EXAM: Two-dimensional and M-mode echocardiogram with Doppler and color Doppler. Other Information Quality : AverageHR: 68bpm Rhythm : NSR INDICATION CVA/TIA RISK FACTORS Hypertension Obesity 2D DIMENSIONS RVDd4.1 (2.9-3.5cm)Left Atrium(2D)4.4 (1.6-4.0cm) IVSd1.2 (0.7-1.1cm)Aortic Root(2D)3.1 (2.0-3.7cm) LVDd4.2 (3.9-5.9cm)LVOT Diameter2.0 (1.8-2.4cm) PWd1.2 (0.7-1.1cm)LVDs2.1 (2.5-4.0cm) FS (%) 49.5 %SV62.8 ml Aortic Valve AoV Peak Forrest.135.8cm/sAoV VTI31.0cm AO Peak GR.7.4mmHgLVOT Peak Forrest.88.7cm/s AO Mean GR.4mmHgAVA (VMAX)2.09cm2 Mitral Valve MV E Ivaczdyq305.1cm/sMV DECEL [id number] MV A Tzphdmmn32.4cm/sE/A Ratio4.6 Pulmonary Valve PV Peak Xnnnvawj40.2cm/s Tricuspid Valve TR P. Lczqatqi459md/sTR Peak Gr.37mmHg LEFT VENTRICLE The left ventricle is normal size. There is mild concentric left ventricular hypertrophy. The left ve ntricular systolic function is normal and the ejection fraction is within normal range. LV ejection f raction of 50 to 55%. There is normal LV segmental wall motion. The left ventricular diastolic funct ion and filling is normal for age. RIGHT VENTRICLE The right ventricle is normal size. There is normal right ventricular wall thickness. The right ventr icular systolic function is normal. ATRIA The left atrium is moderately dilated. The right atrium is mildly dilated. The interatrial septum is intact with no evidence for an atrial septal defect or patent foramen ovale as noted on 2-D or Dopple r imaging. AORTIC VALVE The aortic valve is normal in structure and function. Doppler and Color Flow revealed no significant aortic regurgitation. There is no significant aortic valvular stenosis. MITRAL VALVE The mitral valve is normal in structure and function. There is no evidence of mitral valve prolapse. There is no mitral valve stenosis. Doppler and Color-flow revealed mild to moderate mitral regurgitat ion. TRICUSPID VALVE The tricuspid valve is normal in structure and function. Doppler and Color Flow revealed mild tricusp id regurgitation. Estimated PAP 46 mmHg. There is no tricuspid valve stenosis. PULMONIC VALVE The pulmonary valve is normal in structure and function. Doppler and Color Flow revealed mild pulmoni c valvular regurgitation. GREAT VESSELS The aortic root is normal in size. The ascending aorta is normal in size. The IVC is dilated and deann apses <50% with inspiration. PERICARDIAL EFFUSION There is no evidence of significant pericardial effusion. Critical Notification Critical Value: No <Conclusion> The left ventricle is normal size. The left ventricular systolic function is normal and the ejection fraction is within normal range. LV ejection fraction of 50 to 55%. There is mild concentric left ventricular hypertrophy. Doppler and Color Flow revealed no significant aortic regurgitation. There is no significant aortic valvular stenosis. Doppler and Color-flow revealed mild to moderate mitral regurgitation. Doppler and Color Flow revealed mild tricuspid regurgitation. Estimated PAP 46 mmHg. Signed by : Kj Pereira MD Electronically Approved : 02/05/2021 17:59:01
[2021-02-05 19:33] VITALS: BP 190/98
[2021-02-05 22:57] VITALS: BP 198/89
[2021-02-06 02:43] VITALS: BP 175/85
[2021-02-06] MEDS: IV NORMAL SALINE 1000ML BAG 1,000 ML IV SCH ×3 (05:28→16:00)
[2021-02-06] MEDS: PANTOPRAZOLE 40 MG TABLET.DR. PO SCH (05:29)
[2021-02-06] MEDS: LEVOTHYROXINE 125 MCG TABLET PO SCH (05:29)
[2021-02-06 06:22] LABS: CALCIUM 8.7 mg/dL (8.5-10.1); CREATININE 0.8 mg/dL (0.6-1.0); GFR 69.2; MAGNESIUM 1.9 mg/dL (1.8-2.4); POTASSIUM 3.6 mmol/L (3.5-5.1)
[2021-02-06 06:29] LABS: BASO # 0.1 x10^3/uL (0.0-0.2); BASO % 1 % (0-3); EOS # 0.2 x10^3/uL (0.0-0.7); EOS % 2 % (0-3); HEMATOCRIT 39.9 % (36.0-47.0); HEMOGLOBIN 13.5 g/dL (12.0-15.5); LYMPH # 1.3 x10^3/uL (1.0-4.8); LYMPH % 16 % (24-48); MEAN CORPUSCULAR HEMOGLOBIN 32 pg (25-35); MEAN CORPUSCULAR HGB CONC 34 g/dL (31-37); MEAN CORPUSCULAR VOLUME 94 fL (79-100); MONO # 0.6 x10^3/uL (0.0-1.1); MONO % 7 % (0-9); NEUT # 6.1 x10^3/uL (1.8-7.7); NEUT % 74 % (31-73); PLATELET COUNT 175 x10^3/uL (140-400); RED BLOOD COUNT 4.26 x10^6/uL (3.50-5.40); RED CELL DISTRIBUTION WIDTH 14.6 % (11.5-14.5); WHITE BLOOD COUNT 8.3 x10^3/uL (4.0-11.0)
[2021-02-06 07:48] VITALS: BP 190/100
--- NOTE | 2021-02-06 09:00 | PDOC ---
PROGRESS NOTES Date of Service DATE: 02/06/21 TIME: 08:57 Assessment Problems Medical Problems: (1) Acute ischemic left MCA stroke Status: Acute Clinically a transient ischemic attack, but acute on subacute infarct in the left frontal lobe along the left MCA distribution; radiologist read the CT angiogram as normal, but it shows left middle cerebral artery lesion in the M2 segment. There has also been some cognitive issues since a head injury 11 months ago, possible mild dementia. Labs so far negative Atrial fibrillation, has been on apixaban, holding until we get the MRI results Favorable lipid profile Note abnormal thyroid function testing, management per internal medicine Blood pressure running high Plan Resume apixaban, hold off on adding aspirin Discontinue atorvastatin given favorable lipids Rehabilitation modalities Blood pressure control, home when it is optimal Follow-up with me in 4-6 weeks Subjective No complaints, wants to go home Objective Vital Signs Date Time Temp Pulse Resp B/P (MAP) Pulse Ox O2 Delivery O2 Flow Rate FiO2 02/06/21 07:48 97.4 80 18 190/100 (130) 98 Room Air 97.4 Intake and Output 02/06/21 07:00 Intake Total 180 ml Balance 180 ml Intake Oral 180 ml # Voids 3 PHYSICAL EXAM Alert. Oriented to time, place and person. PERRL. EOMI. CN: no focal findings. Muscle tone: normal. Muscle strength: 5/5 DTR: 2+ Plantar reflex: Flexor Gait: not examined in bed. Sensory exam: no abnormal findings. No cerebellar signs elicited. Review of Relevant I have reviewed the following items jer (where applicable) has been applied. Labs Laboratory Tests Test 02/05/21 05:20 02/06/21 04:50 White Blood Count 7.9 x10^3/uL (4.0-11.0) 8.3 x10^3/uL (4.0-11.0) Red Blood Count 4.41 x10^6/uL (3.50-5.40) 4.26 x10^6/uL (3.50-5.40) Hemoglobin 14.1 g/dL (12.0-15.5) 13.5 g/dL (12.0-15.5) Hematocrit 41.0 % (36.0-47.0) 39.9 % (36.0-47.0) Mean Corpuscular Volume 93 fL (79-100) 94 fL (79-100) Mean Corpuscular Hemoglobin 32 pg (25-35) 32 pg (25-35) Mean Corpuscular Hemoglobin Concent 34 g/dL (31-37) 34 g/dL (31-37) Red Cell Distribution Width 14.5 % (11.5-14.5) 14.6 % (11.5-14.5) Platelet Count 196 x10^3/uL (140-400) 175 x10^3/uL (140-400) Neutrophils (%) (Auto) 68 % (31-73) 74 % (31-73) Lymphocytes (%) (Auto) 22 % (24-48) 16 % (24-48) Monocytes (%) (Auto) 7 % (0-9) 7 % (0-9) Eosinophils (%) (Auto) 2 % (0-3) 2 % (0-3) Basophils (%) (Auto) 1 % (0-3) 1 % (0-3) Neutrophils # (Auto) 5.4 x10^3/uL (1.8-7.7) 6.1 x10^3/uL (1.8-7.7) Lymphocytes # (Auto) 1.7 x10^3/uL (1.0-4.8) 1.3 x10^3/uL (1.0-4.8) Monocytes # (Auto) 0.6 x10^3/uL (0.0-1.1) 0.6 x10^3/uL (0.0-1.1) Eosinophils # (Auto) 0.2 x10^3/uL (0.0-0.7) 0.2 x10^3/uL (0.0-0.7) Basophils # (Auto) 0.1 x10^3/uL (0.0-0.2) 0.1 x10^3/uL (0.0-0.2) Sodium Level 138 mmol/L (136-145) 138 mmol/L (136-145) Potassium Level 3.7 mmol/L (3.5-5.1) 3.6 mmol/L (3.5-5.1) Chloride Level 104 mmol/L (98-107) 104 mmol/L (98-107) Carbon Dioxide Level 24 mmol/L (21-32) 25 mmol/L (21-32) Anion Gap 10 (6-14) 9 (6-14) Blood Urea Nitrogen 10 mg/dL (7-20) 10 mg/dL (7-20) Creatinine 0.7 mg/dL (0.6-1.0) 0.8 mg/dL (0.6-1.0) Estimated GFR (Cockcroft-Gault) 80.7 69.2 Glucose Level 102 mg/dL (70-99) 100 mg/dL (70-99) Calcium Level 8.7 mg/dL (8.5-10.1) 8.7 mg/dL (8.5-10.1) Magnesium Level 1.9 mg/dL (1.8-2.4) 1.9 mg/dL (1.8-2.4) Erythrocyte Sedimentation Rate 5 (0-25) Laboratory Tests Test 02/06/21 04:50 White Blood Count 8.3 x10^3/uL (4.0-11.0) Red Blood Count 4.26 x10^6/uL (3.50-5.40) Hemoglobin 13.5 g/dL (12.0-15.5) Hematocrit 39.9 % (36.0-47.0) Mean Corpuscular Volume 94 fL (79-100) Mean Corpuscular Hemoglobin 32 pg (25-35) Mean Corpuscular Hemoglobin Concent 34 g/dL (31-37) Red Cell Distribution Width 14.6 % (11.5-14.5) Platelet Count 175 x10^3/uL (140-400) Neutrophils (%) (Auto) 74 % (31-73) Lymphocytes (%) (Auto) 16 % (24-48) Monocytes (%) (Auto) 7 % (0-9) Eosinophils (%) (Auto) 2 % (0-3) Basophils (%) (Auto) 1 % (0-3) Neutrophils # (Auto) 6.1 x10^3/uL (1.8-7.7) Lymphocytes # (Auto) 1.3 x10^3/uL (1.0-4.8) Monocytes # (Auto) 0.6 x10^3/uL (0.0-1.1) Eosinophils # (Auto) 0.2 x10^3/uL (0.0-0.7) Basophils # (Auto) 0.1 x10^3/uL (0.0-0.2) Erythrocyte Sedimentation Rate 5 (0-25) Sodium Level 138 mmol/L (136-145) Potassium Level 3.6 mmol/L (3.5-5.1) Chloride Level 104 mmol/L (98-107) Carbon Dioxide Level 25 mmol/L (21-32) Anion Gap 9 (6-14) Blood Urea Nitrogen 10 mg/dL (7-20) Creatinine 0.8 mg/dL (0.6-1.0) Estimated GFR (Cockcroft-Gault) 69.2 Glucose Level 100 mg/dL (70-99) Calcium Level 8.7 mg/dL (8.5-10.1) Magnesium Level 1.9 mg/dL (1.8-2.4) Medications Current Medications Iohexol (Omnipaque 300 Mg/ml) 75 ml 1X ONCE IV ; Start 02/03/21 at 16:15; Stop 02/03/21 at 16:16; Status DC Info (CONTRAST GIVEN -- Rx MONITORING) 1 each PRN DAILY PRN MC SEE COMMENTS; Start 02/03/21 at 16:15; Stop 02/05/21 at 16:14; Status DC Aspirin ([place] Aspirin) 325 mg 1X ONCE PO Last administered on 02/03/21at 17:47; Start 02/03/21 at 16:30; Stop 02/03/21 at 16:31; Status DC Ondansetron HCl (Zofran) 4 mg PRN Q8HRS PRN IVP NAUSEA/VOMITING; Start 02/03/21 at 16:30; Stop 02/04/21 at 16:29; Status DC Acetaminophen (Tylenol) 650 mg PRN Q4HRS PRN PO FEVER > 100.3'F Last administered on 02/04/21at 15:23; Start 02/03/21 at 16:30; Stop 02/04/21 at 16:29; Status DC Sennosides (Senna) 17.2 mg PRN BID PRN PO CONSTIPATION; Start 02/03/21 at 18:00 Docusate Sodium (Colace) 100 mg PRN DAILY PRN PO HARD STOOLS; Start 02/03/21 at 18:00 Ondansetron HCl (Zofran) 4 mg PRN Q6HRS PRN IVP NAUSEA/VOMITING; Start 02/03/21 at 18:00 Dextrose (Dextrose 50%-Water Syringe) 12.5 gm PRN Q15MIN PRN IV SEE COMMENTS; Start 02/03/21 at 18:00 Sodium Chloride 1,000 ml @ 100 mls/hr Q10H IV Last administered on 02/06/21at 05:28; Start 02/03/21 at 18:00 Acetaminophen (Tylenol) 650 mg PRN Q4HRS PRN PO TEMP OVER 100.4F OR MILD PAIN Last administered on 02/05/21at 10:31; Start 02/03/21 at 18:00 Lorazepam (Ativan) 0.5 mg PRN Q6HRS PRN PO ANXIETY / AGITATION; Start 02/03/21 at 18:00 Lorazepam (Ativan Inj) 0.25 mg PRN Q4HRS PRN IV ANXIETY / AGITATION; Start 02/03/21 at 18:00 Enoxaparin Sodium (Lovenox 40mg Syringe) 40 mg Q24H SQ ; Start 02/04/21 at 18:00; Stop 02/03/21 at 23:51; Status DC Prochlorperazine Edisylate (Compazine) 10 mg PRN Q6HRS PRN IV NAUSEA/VOMITING- 2ND CHOICE; Start 02/03/21 at 18:00 Zolpidem Tartrate (Ambien) 2.5 mg PRN QHS PRN PO INSOMNIA; Start 02/03/21 at 18:00 Pantoprazole Sodium (Protonix) 40 mg DAILYAC PO Last administered on 02/06/21at 05:29; Start 02/04/21 at 07:30 Levothyroxine Sodium (Synthroid) 137 mcg DAILY06 PO Last administered on 02/04/21at 05:32; Start 02/04/21 at 06:00; Stop 02/04/21 at 09:09; Status DC Metoprolol Tartrate (Lopressor) 12.5 mg BID PO Last administered on 02/05/21at 20:36; Start 02/03/21 at 23:00 Labetalol HCl (Normodyne Iv Push) 10 mg PRN Q2HR PRN IVP HYPERTENSION Last administered on 02/05/21at 23:03; Start 02/03/21 at 22:15 Apixaban (Eliquis) 2.5 mg BID PO Last administered on 02/04/21at 08:16; Start 02/04/21 at 00:00; Stop 02/04/21 at 15:03; Status DC Info (Anti-Coagulation Monitoring By Pharmacy) 1 each PRN DAILY PRN MC PER PROTOCOL Last administered on 02/04/21at 01:51; Start 02/03/21 at 23:45 Levothyroxine Sodium (Synthroid) 125 mcg DAILY06 PO Last administered on 02/06/21at 05:29; Start 02/05/21 at 06:00 Losartan Potassium (Cozaar) 50 mg BID PO Last administered on 02/05/21at 20:42; Start 02/04/21 at 11:30 Fluticasone Propionate (Flonase) 2 spray DAILY NS Last administered on 02/05/21at 08:01; Start 02/04/21 at 12:00 Multivitamins (Thera M Plus) 1 tab DAILY PO Last administered on 02/05/21at 08:00; Start 02/04/21 at 12:00 Zinc Sulfate (Orazinc) 220 mg DAILY PO Last administered on 02/05/21at 08:00; Start 02/04/21 at 12:00 Atorvastatin Calcium (Lipitor) 80 mg QHS PO Last administered on 02/04/21at 20:24; Start 02/04/21 at 21:00; Stop 02/05/21 at 09:20; Status DC Active Scripts Active Reported Vitamin D3 (Vitamin D) 25 Mcg Tablet 25 Mcg PO DAILY 1,000 UNITS = 25 MCG Vitamin C (Ascorbic Acid) 500 Mg Capsule.er 2 Cap PO DAILY 30 Days Ocuvite Lutein 25-5 mg Softgel (Lutein/Zeaxanthin) 1 Each Capsule 1 Cap PO DAILY 30 Days Zinc 50 Mg Tablet 100 Mg PO DAILY Daily Value (Multivitamin) 1 Each Tablet 1 Tab PO DAILY 30 Days Acetaminophen 325 Mg Tablet 325 Mg PO PRN Q4HRS PRN Ibuprofen 600 Mg Tablet 600 Mg PO PRN Q6HRS PRN Nexium Capsule (Esomeprazole Magnesium) 40 Mg Capsule.dr 40 Mg PO DAILYAC Fluticasone Propionate Nasal [place] (Fluticasone Propionate) 16 Gm [place].susp 2 [place] NS DAILY Toprol Xl (Metoprolol Succinate) 25 Mg Tab.er.24h 25 Mg PO DAILY Losartan Potassium 100 Mg Tablet 100 Mg PO DAILY Synthroid (Levothyroxine Sodium) 137 Mcg Tablet 137 Mcg PO DAILYAC Vitals/I & O Vital Sign - Last 24 Hours 02/05/21 02/05/21 02/05/21 02/05/21 11:00 15:00 16:12 19:33 Temp 97.7 98.3 97.1 97.7 98.3 97.1 Pulse 85 80 94 Resp 18 16 20 B/P (MAP) 195/97 (129) 191/92 (125) 191/92 190/98 (128) Pulse Ox 93 96 99 O2 Delivery Nasal Cannula Room Air Room Air 02/05/21 02/05/21 02/05/21 02/05/21 20:30 20:36 20:42 22:57 Temp 96.7 96.7 Pulse 94 94 83 Resp 16 B/P (MAP) 190/98 190/98 198/89 (125) Pulse Ox 100 O2 Delivery Room Air Room Air 02/05/21 02/06/21 02/06/21 23:03 02:43 07:48 Temp 98.4 97.4 98.4 97.4 Pulse 83 70 80 Resp 18 18 B/P (MAP) 198/89 175/85 (115) 190/100 (130) Pulse Ox 98 98 O2 Delivery Room Air Room Air Intake and Output 02/05/21 02/05/21 02/06/21 15:00 23:00 07:00 Intake Total 180 ml 0 ml Balance 180 ml 0 ml Images MRI brain without IV contrast INDICATION: Left MCA stroke COMPARISON: CT dated 02/03/2021 TECHNIQUE: MRI of the brain was performed using high-resolution multiplanar [facility] imaging. FINDINGS: There is restricted diffusion in the left frontal lobe distribution of left MCA The area is bright on the T2/FLAIR images, with associated parenchymal swelling. There is no evidence of hemorrhagic transformation at this time. There is a moderate brain parenchymal volume loss. Mild supratentorial periventricular T2/FLAIR hyperintense foci, indeterminate but most likely representing chronic microangiopathic disease. No ventricular dilatation. No extra-axial fluid collection. Minimal fluid seen in both mastoid air cells. Paranasal sinuses and mastoid air cells are clear. The orbital contents appear within normal limits. IMPRESSION: Acute on subacute infarct in the left frontal lobe along the left MCA distribution. No evidence of hemorrhagic transformation at this time. LEFT VENTRICLE The left ventricle is normal size. There is mild concentric left ventricular hypertrophy. The left ventricular systolic function is normal and the ejection fraction is within normal range. LV ejection fraction of 50 to 55%. There is normal LV segmental wall motion. The left ventricular diastolic function and filling is normal for age. RIGHT VENTRICLE The right ventricle is normal size. There is normal right ventricular wall thickness. The right ventricular systolic function is normal. ATRIA The left atrium is moderately dilated. The right atrium is mildly dilated. The interatrial septum is intact with no evidence for an atrial septal defect or patent foramen ovale as noted on 2-D or Doppler imaging. AORTIC VALVE The aortic valve is normal in structure and function. Doppler and Color Flow revealed no significant aortic regurgitation. There is no significant aortic valvular stenosis. MITRAL VALVE The mitral valve is normal in structure and function. There is no evidence of mitral valve prolapse. There is no mitral valve stenosis. Doppler and Color-flow revealed mild to moderate mitral regurgitation. TRICUSPID VALVE The tricuspid valve is normal in structure and function. Doppler and Color Flow revealed mild tricuspid regurgitation. Estimated PAP 46 mmHg. There is no tricuspid valve stenosis. PULMONIC VALVE The pulmonary valve is normal in structure and function. Doppler and Color Flow revealed mild pulmonic valvular regurgitation. GREAT VESSELS The aortic root is normal in size. The ascending aorta is normal in size. The IVC is dilated and collapses <50% with inspiration. PERICARDIAL EFFUSION There is no evidence of significant pericardial effusion. Critical Notification Critical Value: No <Conclusion> The left ventricle is normal size. The left ventricular systolic function is normal and the ejection fraction is within normal range. LV ejection fraction of 50 to 55%. There is mild concentric left ventricular hypertrophy. Doppler and Color Flow revealed no significant aortic regurgitation. There is no significant aortic valvular stenosis. Doppler and Color-flow revealed mild to moderate mitral regurgitation. Doppler and Color Flow revealed mild tricuspid regurgitation. Estimated PAP 46 mmHg. Justicifation of Admission Dx: Justifications for Admission: Justification of Admission Dx: N/A ENE ALEGRE MD Feb 06, 2021 09:00
[2021-02-06] MEDS ORDERED: APIXABAN 2.5 MG TABLET. PO SCH (09:15)
[2021-02-06] MEDS: METOPROLOL TART IMMED RELEASE 25 MG TABLET. PO SCH ×3 (10:03→20:53)
[2021-02-06] MEDS: LOSARTAN POTASSIUM 50 MG TABLET. PO SCH ×2 (10:03→20:45)
[2021-02-06] MEDS: ZINC SULFATE 220 MG CAPSULE. PO SCH (10:03)
[2021-02-06] MEDS: MULTIVITAMIN with MINERAL TABLET. PO SCH (10:03)
[2021-02-06] MEDS: FLUTICASONE 50MCG/NASAL SPRAY 16GM BOTTLE. NS SCH (10:04)
[2021-02-06 10:15] VITALS: BP 187/90
--- NOTE | 2021-02-06 12:46 | NUR ---
SS following up with discharge planning. SS reviewed pt chart and discussed with pt RN. Pt is currently on room air. Neurology following. PO diet. PT/OT recommended home with home healthcare. Pt accepted on services with [facility], ; fax [phone]. SS will continue to follow for discharge planning. Addendum: 02/06/21 at 1424 by ANNE-MARIE CRUZ Discharge orders received for home with home healthcare. Discharge orders sent to [facility].
--- NOTE | 2021-02-06 13:35 | PDOC ---
[facility] [facility] PROGRESS NOTE Date of Service DOS: DATE: 02/06/21 TIME: 13:34 Chief Complaint Chief Complaint Left MCA stroke, with rapid recovery like TIA, MRI showed new event Hypertensive emergency on admit History of Graves' disease History of sleep apnea History of COPD History of GERD mild dementia. chronic diastolic CHF with Atrial fibrillation, on apixaban, History of Present Illness History of Present Illness Echocardiogram pending, held aspirin and apixaban may resume Check B12 and sedimentation rate PT and OT and speech, Vitals/I&O Vitals/I&O: Vital Signs Date Time Temp Pulse Resp B/P (MAP) Pulse Ox O2 Delivery O2 Flow Rate FiO2 02/06/21 10:15 97.8 88 18 187/90 (122) 97 Room Air 97.8 I & O 02/05/21 02/05/21 02/06/21 15:00 23:00 07:00 Intake Total 180 ml 0 ml Balance 180 ml 0 ml Labs Labs: Laboratory Tests Test 02/06/21 04:50 White Blood Count 8.3 x10^3/uL (4.0-11.0) Red Blood Count 4.26 x10^6/uL (3.50-5.40) Hemoglobin 13.5 g/dL (12.0-15.5) Hematocrit 39.9 % (36.0-47.0) Mean Corpuscular Volume 94 fL (79-100) Mean Corpuscular Hemoglobin 32 pg (25-35) Mean Corpuscular Hemoglobin Concent 34 g/dL (31-37) Red Cell Distribution Width 14.6 % (11.5-14.5) Platelet Count 175 x10^3/uL (140-400) Neutrophils (%) (Auto) 74 % (31-73) Lymphocytes (%) (Auto) 16 % (24-48) Monocytes (%) (Auto) 7 % (0-9) Eosinophils (%) (Auto) 2 % (0-3) Basophils (%) (Auto) 1 % (0-3) Neutrophils # (Auto) 6.1 x10^3/uL (1.8-7.7) Lymphocytes # (Auto) 1.3 x10^3/uL (1.0-4.8) Monocytes # (Auto) 0.6 x10^3/uL (0.0-1.1) Eosinophils # (Auto) 0.2 x10^3/uL (0.0-0.7) Basophils # (Auto) 0.1 x10^3/uL (0.0-0.2) Erythrocyte Sedimentation Rate 5 (0-25) Sodium Level 138 mmol/L (136-145) Potassium Level 3.6 mmol/L (3.5-5.1) Chloride Level 104 mmol/L (98-107) Carbon Dioxide Level 25 mmol/L (21-32) Anion Gap 9 (6-14) Blood Urea Nitrogen 10 mg/dL (7-20) Creatinine 0.8 mg/dL (0.6-1.0) Estimated GFR (Cockcroft-Gault) 69.2 Glucose Level 100 mg/dL (70-99) Calcium Level 8.7 mg/dL (8.5-10.1) Magnesium Level 1.9 mg/dL (1.8-2.4) Vitamin B12 Level 604 pg/mL (247-911) Assessment and Plan Assessmemt and Plan Problems Medical Problems: (1) Acute ischemic left MCA stroke Status: Acute Comment Review of Relevant I have reviewed the following items jer (where applicable) has been applied. Medications: Current Medications Medications (Trade) Dose Ordered Sig/Sosa Route PRN Reason Start Time Stop Time Status Last Admin Dose Admin Apixaban (Eliquis) 2.5 mg BID PO 02/06/21 09:15 02/06/21 12:06 DC 02/06/21 10:04 Justifications for Admission Other Justification Left MCA stroke ES STOUT MD Feb 06, 2021 13:35
[2021-02-06] MEDS ORDERED: METO-247 PO (14:00)
[2021-02-06] MEDS ORDERED: APIX5TAB PO (14:00)
[2021-02-06] MEDS: ACETAMINOPHEN 325 MG TABLET. PO PRN (14:01)
--- NOTE | 2021-02-06 14:04 | SNU/HH DC ---
DISCHARGE WITH HOME HEALTH DISCHARGE INFORMATION: Discharge Date: Feb 07, 2021 Final Diagnosis: acute on subacute infarct in the left frontal lobe along the left MCA distribution; r mild dementia. brain injury 11 months ago Atrial fibrillation, has been on apixaban, hypothyriod, Problems Medical Problems: (1) Acute ischemic left MCA stroke Status: Acute Condition on Discharge: Stable HOME HEALTH: Face to Face: I certify this patient is under my care and that I, had a face to face encounter that meets the physician face to face encounter requirements with this patient on 02/06 Medical Complications: CVA Care Home For: Medication Management, Other: RN For Eval/Treatment: Yes Physical Therapy For: Evalulation/Treatment Occupational Therapy For: Evaluation/Treatment Pt Meets Homebound Status: Unsteady balance w/ amb,, Poor cognition POST DISCHARGE ORDERS: Activity Instructions for Disc: No restrictions Weight Bearing Status after Di: No restrictions DIET AFTER DISCHARGE: Cardiac FOLLOW-UP: Follow up with: primary care 1-2 weeks TREATMENT/EQUIPMENT ORDERS: Adaptive Equipment Issued: None CERTIFICATION STATEMENT: Certification Statement: Certification Statement: Based on the above finding, I certify that this patient is confined to the home and needs intermittent fci care, physical therapy and/or speech therapy, or continues to need occupational therapy.~ This patient is under my care, and I have initiated the establishment of the plan of care.~ This patient will be followed by myself or a community physician who will periodically review the plan of care. Home Meds Active Scripts Levothyroxine Sodium (SYNTHROID) 125 Mcg Tablet, 1 TAB PO DAILY for hypothyroid, #30 TAB 2 Refills Prov:ES STOUT MD 02/07/21 Metoprolol Succinate (METOPROLOL SUCCINATE ( XL )) 100 Mg Tab.er.24h, 1 TAB PO DAILY for atrial fib, #30 TAB 2 Refills Prov:ES STOUT MD 02/06/21 Apixaban (ELIQUIS) 5 Mg Tablet, 5 MG PO BID for prevent stroke, #60 TAB 3 Refills Prov:ES STOUT MD 02/06/21 Reported Medications Cholecalciferol (Vitamin D3) (Vitamin D3 ) 25 Mcg Tablet, 25 MCG PO DAILY for SUPPLEMENT, TAB 1,000 UNITS = 25 MCG 02/03/21 Ascorbic Acid (VITAMIN C) 500 Mg Capsule.er, 2 CAP PO DAILY for supplement for 30 Days, #60 CAP 0 Refills 02/03/21 Lutein/Zeaxanthin (Ocuvite Lutein 25-5 mg Softgel) 1 Each Capsule, 1 CAP PO DAILY for supplement for 30 Days, #30 CAP 0 Refills 02/03/21 Zinc (ZINC) 50 Mg Tablet, 100 MG PO DAILY for supplement, TAB 02/03/21 Multivitamin (DAILY VALUE) 1 Each Tablet, 1 TAB PO DAILY for supplement for 30 Days, #30 TAB 0 Refills 02/03/21 Acetaminophen (ACETAMINOPHEN) 325 Mg Tablet, 325 MG PO PRN Q4HRS PRN for PAIN, TAB 02/03/21 Ibuprofen (IBUPROFEN) 600 Mg Tablet, 600 MG PO PRN Q6HRS PRN for INFLAMMATION, TAB 02/03/21 Esomeprazole Magnesium (NEXIUM CAPSULE) 40 Mg Capsule.dr, 40 MG PO DAILYAC for GERD, #30 CAP 0 Refills 02/03/21 Fluticasone Propionate (FLUTICASONE PROPIONATE NASAL SPRAY) 16 Gm [place].susp, 2 SPRAY NS DAILY for ALLERGIES, #1 INHALER 5 Refills 10/25/19 Losartan Potassium (LOSARTAN POTASSIUM) 100 Mg Tablet, 100 MG PO DAILY for HYPERTENSION, TAB 10/25/19 Discontinued Reported Medications Levothyroxine Sodium (SYNTHROID) 137 Mcg Tablet, 137 MCG PO DAILYAC for THYROID SUPPLEMENT, #30 TAB 0 Refills 10/25/19 Metoprolol Succinate (TOPROL XL) 25 Mg Tab.er.24h, 25 MG PO DAILY for FOR HYPERTENSION, #30 TAB 0 Refills 10/25/19 ES STOUT MD Feb 06, 2021 14:04
--- NOTE | 2021-02-06 14:07 | PDOC3 ---
Discharge Summary Visit Information Date of Admission: Feb 04, 2021 Date of Discharge: Feb 06, 2021 Final Diagnosis acute on subacute infarct in the left frontal lobe along the left MCA distribution; r mild dementia. brain injury 11 months ago Atrial fibrillation, has been on apixaban, hypothyroidism Problems Medical Problems: (1) Acute ischemic left MCA stroke Problems Medical Problems: (1) Acute ischemic left MCA stroke Status: Acute Brief Hospital Course Allergies Allergies Coded Allergies Type Severity Reaction Last Updated Verified Penicillins Allergy Intermediate 10/25/19 Yes Sulfa (Sulfonamide Antibiotics) Allergy Intermediate 10/25/19 Yes propylene glycol Allergy Intermediate 10/25/19 Yes Vital Signs Vital Signs Date Time Temp Pulse Resp B/P (MAP) Pulse Ox O2 Delivery O2 Flow Rate FiO2 02/06/21 14:00 88 187/90 02/06/21 10:15 97.8 18 97 Room Air 97.8 Lab Results Laboratory Tests Test 02/05/21 05:20 02/06/21 04:50 White Blood Count 7.9 x10^3/uL (4.0-11.0) 8.3 x10^3/uL (4.0-11.0) Red Blood Count 4.41 x10^6/uL (3.50-5.40) 4.26 x10^6/uL (3.50-5.40) Hemoglobin 14.1 g/dL (12.0-15.5) 13.5 g/dL (12.0-15.5) Hematocrit 41.0 % (36.0-47.0) 39.9 % (36.0-47.0) Mean Corpuscular Volume 93 fL (79-100) 94 fL (79-100) Mean Corpuscular Hemoglobin 32 pg (25-35) 32 pg (25-35) Mean Corpuscular Hemoglobin Concent 34 g/dL (31-37) 34 g/dL (31-37) Red Cell Distribution Width 14.5 % (11.5-14.5) 14.6 % (11.5-14.5) Platelet Count 196 x10^3/uL (140-400) 175 x10^3/uL (140-400) Neutrophils (%) (Auto) 68 % (31-73) 74 % (31-73) Lymphocytes (%) (Auto) 22 % (24-48) 16 % (24-48) Monocytes (%) (Auto) 7 % (0-9) 7 % (0-9) Eosinophils (%) (Auto) 2 % (0-3) 2 % (0-3) Basophils (%) (Auto) 1 % (0-3) 1 % (0-3) Neutrophils # (Auto) 5.4 x10^3/uL (1.8-7.7) 6.1 x10^3/uL (1.8-7.7) Lymphocytes # (Auto) 1.7 x10^3/uL (1.0-4.8) 1.3 x10^3/uL (1.0-4.8) Monocytes # (Auto) 0.6 x10^3/uL (0.0-1.1) 0.6 x10^3/uL (0.0-1.1) Eosinophils # (Auto) 0.2 x10^3/uL (0.0-0.7) 0.2 x10^3/uL (0.0-0.7) Basophils # (Auto) 0.1 x10^3/uL (0.0-0.2) 0.1 x10^3/uL (0.0-0.2) Sodium Level 138 mmol/L (136-145) 138 mmol/L (136-145) Potassium Level 3.7 mmol/L (3.5-5.1) 3.6 mmol/L (3.5-5.1) Chloride Level 104 mmol/L (98-107) 104 mmol/L (98-107) Carbon Dioxide Level 24 mmol/L (21-32) 25 mmol/L (21-32) Anion Gap 10 (6-14) 9 (6-14) Blood Urea Nitrogen 10 mg/dL (7-20) 10 mg/dL (7-20) Creatinine 0.7 mg/dL (0.6-1.0) 0.8 mg/dL (0.6-1.0) Estimated GFR (Cockcroft-Gault) 80.7 69.2 Glucose Level 102 mg/dL (70-99) 100 mg/dL (70-99) Calcium Level 8.7 mg/dL (8.5-10.1) 8.7 mg/dL (8.5-10.1) Magnesium Level 1.9 mg/dL (1.8-2.4) 1.9 mg/dL (1.8-2.4) Erythrocyte Sedimentation Rate 5 (0-25) Vitamin B12 Level 604 pg/mL (247-911) Laboratory Tests Test 02/06/21 04:50 White Blood Count 8.3 x10^3/uL (4.0-11.0) Red Blood Count 4.26 x10^6/uL (3.50-5.40) Hemoglobin 13.5 g/dL (12.0-15.5) Hematocrit 39.9 % (36.0-47.0) Mean Corpuscular Volume 94 fL (79-100) Mean Corpuscular Hemoglobin 32 pg (25-35) Mean Corpuscular Hemoglobin Concent 34 g/dL (31-37) Red Cell Distribution Width 14.6 % (11.5-14.5) Platelet Count 175 x10^3/uL (140-400) Neutrophils (%) (Auto) 74 % (31-73) Lymphocytes (%) (Auto) 16 % (24-48) Monocytes (%) (Auto) 7 % (0-9) Eosinophils (%) (Auto) 2 % (0-3) Basophils (%) (Auto) 1 % (0-3) Neutrophils # (Auto) 6.1 x10^3/uL (1.8-7.7) Lymphocytes # (Auto) 1.3 x10^3/uL (1.0-4.8) Monocytes # (Auto) 0.6 x10^3/uL (0.0-1.1) Eosinophils # (Auto) 0.2 x10^3/uL (0.0-0.7) Basophils # (Auto) 0.1 x10^3/uL (0.0-0.2) Erythrocyte Sedimentation Rate 5 (0-25) Sodium Level 138 mmol/L (136-145) Potassium Level 3.6 mmol/L (3.5-5.1) Chloride Level 104 mmol/L (98-107) Carbon Dioxide Level 25 mmol/L (21-32) Anion Gap 9 (6-14) Blood Urea Nitrogen 10 mg/dL (7-20) Creatinine 0.8 mg/dL (0.6-1.0) Estimated GFR (Cockcroft-Gault) 69.2 Glucose Level 100 mg/dL (70-99) Calcium Level 8.7 mg/dL (8.5-10.1) Magnesium Level 1.9 mg/dL (1.8-2.4) Vitamin B12 Level 604 pg/mL (247-911) Brief Hospital Course Ms. Paulino is a 80 old female, admit with marked confusion, weakness, transfer to was considered from the ER, lesion thought to be old. New on old MCA lesion. confusion better over days, Neuro followed for aute CVA syndrome Afib beter, htn persisted, CV consulted, Discharge Information Condition at Discharge: Improved Follow Up: Weeks Disposition/Orders: D/C to Home w/ HH Scheduled Apixaban (Eliquis) 5 Mg Tablet, 5 MG PO BID for prevent stroke, #60 Ref 3 Prescribed by: ES STOUT on 02/06/21 1400 Ascorbic Acid (Vitamin C) 500 Mg Capsule.er, 2 CAP PO DAILY for supplement for 30 Days, #60 Ref 0 (Reported) Entered as Reported by: LINWOOD RAYMOND on 02/03/211935 Last Action: New Order on 02/03/211935 by LINWOOD RAYMOND Cholecalciferol (Vitamin D3) (Vitamin D3 ) 25 Mcg Tablet, 25 MCG PO DAILY for SUPPLEMENT, (Reported) 1,000 UNITS = 25 MCG Entered as Reported by: LINWOOD RAYMOND on 02/03/211935 Last Action: New Order on 02/03/211935 by LINWOOD RAYMOND Esomeprazole Magnesium (Nexium Capsule) 40 Mg Capsule.dr, 40 MG PO DAILYAC for GERD, #30 Ref 0 (Reported) Entered as Reported by: LINWOOD RAYMOND on 02/03/211935 Last Action: New Order on 02/03/211935 by LINWOOD RAYMOND Fluticasone Propionate (Fluticasone Propionate Nasal Thurmond) 16 Gm Thurmond.susp, 2 SPRAY NS DAILY for ALLERGIES, #1 Ref 5 (Reported) Entered as Reported by: RAZ CABEZAS on 10/25/19 0913 Last Action: Continued on 02/04/21 1054 by CAMACHO VOSS MD Levothyroxine Sodium (Synthroid) 137 Mcg Tablet, 137 MCG PO DAILYAC for THYROID SUPPLEMENT, #30 Ref 0 (Reported) Entered as Reported by: RAZ CABEZAS on 10/25/19912 Last Action: HELD on 02/04/211053 by CAMACHO VOSS MD Losartan Potassium (Losartan Potassium) 100 Mg Tablet, 100 MG PO DAILY for HYPERTENSION, (Reported) Entered as Reported by: RAZ CABEZAS on 10/25/19912 Last Action: HELD on 02/04/211053 by CAMACHO VOSS MD Lutein/Zeaxanthin (Ocuvite Lutein 25-5 mg Softgel) 1 Each Capsule, 1 CAP PO DAILY for supplement for 30 Days, #30 Ref 0 (Reported) Entered as Reported by: LINWOOD RAYMOND on 02/03/211935 Last Action: New Order on 02/03/211935 by LINWOOD RAYMOND Metoprolol Succinate (Metoprolol Succinate ( Xl )) 100 Mg Tab.er.24h, 1 TAB PO DAILY for atrial fib, #30 Ref 2 Prescribed by: ES STOUT on 02/06/21 1400 Multivitamin (Daily Value) 1 Each Tablet, 1 TAB PO DAILY for supplement for 30 Days, #30 Ref 0 (Reported) Entered as Reported by: LINWOOD RAYMOND on 02/03/211935 Last Action: Converted on 02/04/211053 by CAMACHO VOSS MD Zinc (Zinc) 50 Mg Tablet, 100 MG PO DAILY for supplement, (Reported) Entered as Reported by: LINWOOD RAYMOND on 02/03/211935 Last Action: Converted on 02/04/211053 by CAMACHO VOSS MD Scheduled PRN Acetaminophen (Acetaminophen) 325 Mg Tablet, 325 MG PO PRN Q4HRS PRN for PAIN, (Reported) Entered as Reported by: LINWOOD RAYMOND on 02/03/211935 Last Action: New Order on 02/03/211935 by LINWOOD RAYMOND Ibuprofen (Ibuprofen) 600 Mg Tablet, 600 MG PO PRN Q6HRS PRN for INFLAMMATION, (Reported) Entered as Reported by: LINWOOD RAYMOND on 02/03/211935 Last Action: New Order on 02/03/211935 by LINWOOD RAYMOND Discontinued Medications Metoprolol Succinate (Toprol Xl) 25 Mg Tab.er.24h, 25 MG PO DAILY for FOR HYPERTENSION, #30 Ref 0 (Reported) Entered as Reported by: RAZ CABEZAS on 10/25/19912 Last Action: HELD on 02/04/211053 by CAMACHO VOSS MD Patient Instructions Patient Instructions face to face 3 visits, 41 minutes Justicifation of Admission Dx: Justifications for Admission: Justification of Admission Dx: N/A ES STOUT MD Feb 06, 2021 14:07
[2021-02-06 14:32] VITALS: BP 207/105
--- NOTE | 2021-02-06 14:53 | PDOC2 ---
JOSE BURGESS AXLE TURNER 02/06/21 1453: CARDIAC CONSULT DATE OF CONSULT Date of Consult DATE: 02/06/21 TIME: 14:34 REASON FOR CONSULT Reason for Consult: HTN, AFIB REFERRING PHYSICIAN Referring Physician: Mariusz SOURCE Source: Chart review, Patient HISTORY OF PRESENT ILLNESS HISTORY OF PRESENT ILLNESS This is a 80 yo female admitted for complains of difficulty walking and slurred speech. He was also acting confused at a family gathering. Denies any chest pain, SOA. Does not remember palpitations but does have hx of NSVT in the past. No prior hx of CAD nor any known CVA or AFIB. Her stroke symptoms have resolved and denies any complaints. She uses O2 at night for her ROBERT. PAST MEDICAL HISTORY Past Medical History Cardiovascular: HTN, Hyperlipidemia, NSVT Pulmonary: COPD (On oxygen), Other (Sleep apnea) GI: GERD (Rodriguez's esophagus), Other Musculoskeletal: Osteoarthritis ENT: Other (Bilateral hearing loss) Endocrine: Hypothyroidism (Graves' disease) PAST SURGICAL HISTORY Past Surgical History Appendectomy, Cholecystectomy, Hernia Repair ([facility]), Total hip replacement, Total knee replacement, Tonsillectomy (Adenoidectomy), Hysterectomy, Other (Carpal tunnel release, hammertoe, right shoulder) FAMILY HISTORY Family History: Coronary Artery Disease (father) SOCIAL HISTORY Smoke: Quit ALCOHOL: none Drugs: None Lives: with Family CURRENT MEDICATIONS CURRENT MEDICATIONS Current Medications Medications (Trade) Dose Ordered Sig/Sosa Route PRN Reason Start Time Stop Time Status Last Admin Dose Admin Apixaban (Eliquis) 2.5 mg BID PO 02/06/21 09:15 02/06/21 12:06 DC 02/06/21 10:04 Metoprolol Tartrate (Lopressor) 25 mg BID PO 02/06/21 14:00 02/06/21 14:00 Amlodipine Besylate (Norvasc) 5 mg 1X ONCE PO 02/06/21 14:00 02/06/21 14:01 DC 02/06/21 14:00 ALLERGIES ALLERGIES: Coded Allergies: Penicillins (Verified Allergy, Intermediate, 10/25/19) Sulfa (Sulfonamide Antibiotics) (Verified Allergy, Intermediate, 10/25/19) propylene glycol (Verified Allergy, Intermediate, 10/25/19) ROS Review of System 14 point ROS evaluated with pertinent positives noted per HPI PHYSICAL EXAM General: Alert, Oriented X3, Cooperative, No acute distress HEENT: Atraumatic, Mucous membr. moist/pink Lungs: Clear to auscultation, Normal air movement Heart: Normal S1, Normal S2, No murmurs, Other (AFIB) Abdomen: Soft, No tenderness Extremities: No cyanosis, No edema Skin: No breakdown, No significant lesion Neuro: Normal speech, Sensation intact Psych/Mental Status: Mental status NL, Mood NL MUSCULOSKELETAL: Osteoarthritic changes both hands VITALS/I&O VITALS/I&O: Vital Signs Date Time Temp Pulse Resp B/P (MAP) Pulse Ox O2 Delivery O2 Flow Rate FiO2 02/06/21 14:32 98.3 65 18 207/105 (139) 96 Room Air 98.3 I & O 02/05/21 02/05/21 02/06/21 15:00 23:00 07:00 Intake Total 180 ml 0 ml Balance 180 ml 0 ml LABS Lab: Laboratory Tests Test 02/06/21 04:50 White Blood Count 8.3 x10^3/uL (4.0-11.0) Red Blood Count 4.26 x10^6/uL (3.50-5.40) Hemoglobin 13.5 g/dL (12.0-15.5) Hematocrit 39.9 % (36.0-47.0) Mean Corpuscular Volume 94 fL (79-100) Mean Corpuscular Hemoglobin 32 pg (25-35) Mean Corpuscular Hemoglobin Concent 34 g/dL (31-37) Red Cell Distribution Width 14.6 % (11.5-14.5) H Platelet Count 175 x10^3/uL (140-400) Neutrophils (%) (Auto) 74 % (31-73) H Lymphocytes (%) (Auto) 16 % (24-48) L Monocytes (%) (Auto) 7 % (0-9) Eosinophils (%) (Auto) 2 % (0-3) Basophils (%) (Auto) 1 % (0-3) Neutrophils # (Auto) 6.1 x10^3/uL (1.8-7.7) Lymphocytes # (Auto) 1.3 x10^3/uL (1.0-4.8) Monocytes # (Auto) 0.6 x10^3/uL (0.0-1.1) Eosinophils # (Auto) 0.2 x10^3/uL (0.0-0.7) Basophils # (Auto) 0.1 x10^3/uL (0.0-0.2) Erythrocyte Sedimentation Rate 5 (0-25) Sodium Level 138 mmol/L (136-145) Potassium Level 3.6 mmol/L (3.5-5.1) Chloride Level 104 mmol/L (98-107) Carbon Dioxide Level 25 mmol/L (21-32) Anion Gap 9 (6-14) Blood Urea Nitrogen 10 mg/dL (7-20) Creatinine 0.8 mg/dL (0.6-1.0) Estimated GFR (Cockcroft-Gault) 69.2 Glucose Level 100 mg/dL (70-99) H Calcium Level 8.7 mg/dL (8.5-10.1) Magnesium Level 1.9 mg/dL (1.8-2.4) Vitamin B12 Level 604 pg/mL (247-911) Laboratory Tests 02/06/21 04:50 Laboratory Tests 02/06/21 04:50 ASSESSMENT/PLAN ASSESSMENT/PLAN 1. Acute on subacute infarct in the left frontal lobe along the left MCA distribution with lesion in the M2 segment: per neurology 2. AFIB/flutter: new finding, rate controlled. EF and WM nml 3. Hx of NSVT: used to be on mexilitine, no prior CAD 4. Hypothyroidism: per PCP 5. COPD Recommendations 1. Continue metoprolol for rate control. Eliquis for stroke prevention 2. Start on statin, increase norvasc. HBPM 3. Follow up with Dr. Pereira on March 29 10 AM 4. Anticipate DC tomorrow LOUIE PEREIRA MD 02/06/211810: CARDIAC CONSULT ASSESSMENT/PLAN ASSESSMENT/PLAN Patient seen and examined. I agree with our nurse practitioners assessment and plan. Acute on subacute infarct in the left frontal lobe along the left MCA distribution with lesion in the M2 segment: per neurology AFIB/flutter: new finding, rate controlled. EF and WM nml. Continuing metoprolol for rate control. Eliquis as above. Hx of NSVT: used to be on mexilitine, no prior CAD. Beta-gisselle. Hypothyroidism: per PCP COPD HLD. Statin. JOSE BURGESS AXLE TURNER Feb 06, 2021 14:53 LOUIE PEREIRA MD Feb 06, 2021 18:11
[2021-02-06 19:00] VITALS: BP 160/87
[2021-02-06] MEDS: APIXABAN 5 MG TABLET. PO SCH (20:44)
[2021-02-06] MEDS ORDERED: ATORVASTATIN CALCIUM 10 MG TABLET. PO SCH (21:00)
[2021-02-06 23:00] VITALS: BP 182/92
[2021-02-06] MEDS: LABETALOL 20 MG/4 ML DISP.SYRIN. IVP PRN (23:00)
[2021-02-07] MEDS: IV NORMAL SALINE 1000ML BAG 1,000 ML IV SCH ×2 (02:00→12:00)
[2021-02-07 03:00] VITALS: BP 142/78
[2021-02-07] MEDS: LEVOTHYROXINE 125 MCG TABLET PO SCH (05:26)
[2021-02-07] MEDS: PANTOPRAZOLE 40 MG TABLET.DR. PO SCH (05:26)
[2021-02-07 07:22] VITALS: BP 149/87
[2021-02-07] MEDS: MULTIVITAMIN with MINERAL TABLET. PO SCH (09:44)
[2021-02-07] MEDS: APIXABAN 5 MG TABLET. PO SCH (09:45)
[2021-02-07] MEDS: ZINC SULFATE 220 MG CAPSULE. PO SCH (09:45)
[2021-02-07] MEDS: METOPROLOL TART IMMED RELEASE 25 MG TABLET. PO SCH (09:45)
[2021-02-07 09:46] VITALS: BP 149/87
[2021-02-07] MEDS: FLUTICASONE 50MCG/NASAL SPRAY 16GM BOTTLE. NS SCH (09:46)
[2021-02-07] MEDS: LOSARTAN POTASSIUM 50 MG TABLET. PO SCH (09:46)
--- NOTE | 2021-02-07 11:07 | PDOC ---
PROGRESS NOTES Date of Service DATE: 02/07/21 TIME: 11:05 Assessment Problems Medical Problems: (1) Acute ischemic left MCA stroke Status: Acute Clinically a transient ischemic attack, but acute on subacute infarct in the left frontal lobe along the left MCA distribution; radiologist read the CT angiogram as normal, but it shows left middle cerebral artery lesion in the M2 segment. There has also been some cognitive issues since a head injury 11 months ago, possible mild dementia. Labs negative Atrial fibrillation, has been on apixaban, holding until we get the MRI results Favorable lipid profile Note abnormal thyroid function testing, management per internal medicine Blood pressure better Plan Resume apixaban, hold off on adding aspirin Discontinue atorvastatin given favorable lipids Rehabilitation modalities Blood pressure control, home when it is optimal Home health with physical and speech therapy, possibly occupational as well Follow-up with me in 4-6 weeks Subjective No complaints, wants to go home Objective Vital Signs Date Time Temp Pulse Resp B/P (MAP) Pulse Ox O2 Delivery O2 Flow Rate FiO2 02/07/21 09:46 88 149/87 02/07/21 08:00 Room Air 02/07/21 07:22 97.9 18 96 97.9 02/07/21 03:00 2.0 Intake and Output 02/07/21 07:00 Intake Total 1860 ml Balance 1860 ml Intake Oral 1860 ml # Voids 4 PHYSICAL EXAM Alert. Oriented to time, place and person. PERRL. EOMI. CN: no focal findings. Muscle tone: normal. Muscle strength: 5/5 DTR: 2+ Plantar reflex: Flexor Gait: Normal. Sensory exam: no abnormal findings. No cerebellar signs elicited. Review of Relevant I have reviewed the following items jer (where applicable) has been applied. Labs Laboratory Tests Test 02/06/21 04:50 White Blood Count 8.3 x10^3/uL (4.0-11.0) Red Blood Count 4.26 x10^6/uL (3.50-5.40) Hemoglobin 13.5 g/dL (12.0-15.5) Hematocrit 39.9 % (36.0-47.0) Mean Corpuscular Volume 94 fL (79-100) Mean Corpuscular Hemoglobin 32 pg (25-35) Mean Corpuscular Hemoglobin Concent 34 g/dL (31-37) Red Cell Distribution Width 14.6 % (11.5-14.5) Platelet Count 175 x10^3/uL (140-400) Neutrophils (%) (Auto) 74 % (31-73) Lymphocytes (%) (Auto) 16 % (24-48) Monocytes (%) (Auto) 7 % (0-9) Eosinophils (%) (Auto) 2 % (0-3) Basophils (%) (Auto) 1 % (0-3) Neutrophils # (Auto) 6.1 x10^3/uL (1.8-7.7) Lymphocytes # (Auto) 1.3 x10^3/uL (1.0-4.8) Monocytes # (Auto) 0.6 x10^3/uL (0.0-1.1) Eosinophils # (Auto) 0.2 x10^3/uL (0.0-0.7) Basophils # (Auto) 0.1 x10^3/uL (0.0-0.2) Erythrocyte Sedimentation Rate 5 (0-25) Sodium Level 138 mmol/L (136-145) Potassium Level 3.6 mmol/L (3.5-5.1) Chloride Level 104 mmol/L (98-107) Carbon Dioxide Level 25 mmol/L (21-32) Anion Gap 9 (6-14) Blood Urea Nitrogen 10 mg/dL (7-20) Creatinine 0.8 mg/dL (0.6-1.0) Estimated GFR (Cockcroft-Gault) 69.2 Glucose Level 100 mg/dL (70-99) Calcium Level 8.7 mg/dL (8.5-10.1) Magnesium Level 1.9 mg/dL (1.8-2.4) Vitamin B12 Level 604 pg/mL (247-911) Medications Current Medications Iohexol (Omnipaque 300 Mg/ml) 75 ml 1X ONCE IV ; Start 02/03/21 at 16:15; Stop 02/03/21 at 16:16; Status DC Info (CONTRAST GIVEN -- Rx MONITORING) 1 each PRN DAILY PRN MC SEE COMMENTS; Start 02/03/21 at 16:15; Stop 02/05/21 at 16:14; Status DC Aspirin (Allison Aspirin) 325 mg 1X ONCE PO Last administered on 02/03/21at 17:47; Start 02/03/21 at 16:30; Stop 02/03/21 at 16:31; Status DC Ondansetron HCl (Zofran) 4 mg PRN Q8HRS PRN IVP NAUSEA/VOMITING; Start 02/03/21 at 16:30; Stop 02/04/21 at 16:29; Status DC Acetaminophen (Tylenol) 650 mg PRN Q4HRS PRN PO FEVER > 100.3'F Last administered on 02/04/21at 15:23; Start 02/03/21 at 16:30; Stop 02/04/21 at 16:29; Status DC Sennosides (Senna) 17.2 mg PRN BID PRN PO CONSTIPATION; Start 02/03/21 at 18:00 Docusate Sodium (Colace) 100 mg PRN DAILY PRN PO HARD STOOLS; Start 02/03/21 at 18:00 Ondansetron HCl (Zofran) 4 mg PRN Q6HRS PRN IVP NAUSEA/VOMITING; Start 02/03/21 at 18:00 Dextrose (Dextrose 50%-Water Syringe) 12.5 gm PRN Q15MIN PRN IV SEE COMMENTS; Start 02/03/21 at 18:00 Sodium Chloride 1,000 ml @ 100 mls/hr Q10H IV Last administered on 02/06/21at 16:00; Start 02/03/21 at 18:00 Acetaminophen (Tylenol) 650 mg PRN Q4HRS PRN PO TEMP OVER 100.4F OR MILD PAIN Last administered on 02/06/21at 14:01; Start 02/03/21 at 18:00 Lorazepam (Ativan) 0.5 mg PRN Q6HRS PRN PO ANXIETY / AGITATION; Start 02/03/21 at 18:00 Lorazepam (Ativan Inj) 0.25 mg PRN Q4HRS PRN IV ANXIETY / AGITATION; Start 02/03/21 at 18:00 Enoxaparin Sodium (Lovenox 40mg Syringe) 40 mg Q24H SQ ; Start 02/04/21 at 18:00; Stop 02/03/21 at 23:51; Status DC Prochlorperazine Edisylate (Compazine) 10 mg PRN Q6HRS PRN IV NAUSEA/VOMITING- 2ND CHOICE; Start 02/03/21 at 18:00 Zolpidem Tartrate (Ambien) 2.5 mg PRN QHS PRN PO INSOMNIA; Start 02/03/21 at 18:00 Pantoprazole Sodium (Protonix) 40 mg DAILYAC PO Last administered on 02/07/21 05:26; Start 02/04/21 at 07:30 Levothyroxine Sodium (Synthroid) 137 mcg DAILY06 PO Last administered on 02/04/21at 05:32; Start 02/04/21 at 06:00; Stop 02/04/21 at 09:09; Status DC Metoprolol Tartrate (Lopressor) 12.5 mg BID PO Last administered on 02/06/21at 10:03; Start 02/03/21 at 23:00; Stop 02/06/21 at 13:49; Status DC Labetalol HCl (Normodyne Iv Push) 10 mg PRN Q2HR PRN IVP HYPERTENSION Last administered on 02/06/21at 23:00; Start 02/03/21 at 22:15 Apixaban (Eliquis) 2.5 mg BID PO Last administered on 02/04/21at 08:16; Start 02/04/21 at 00:00; Stop 02/04/21 at 15:03; Status DC Info (Anti-Coagulation Monitoring By Pharmacy) 1 each PRN DAILY PRN MC PER PROTOCOL Last administered on 02/04/21at 01:51; Start 02/03/21 at 23:45 Levothyroxine Sodium (Synthroid) 125 mcg DAILY06 PO Last administered on 02/07/21 05:26; Start 02/05/21 at 06:00 Losartan Potassium (Cozaar) 50 mg BID PO Last administered on 02/07/21at 09:46; Start 02/04/21 at 11:30 Fluticasone Propionate (Flonase) 2 spray DAILY NS Last administered on 02/07/21 09:46; Start 02/04/21 at 12:00 Multivitamins (Thera M Plus) 1 tab DAILY PO Last administered on 02/07/21 09:44; Start 02/04/21 at 12:00 Zinc Sulfate (Orazinc) 220 mg DAILY PO Last administered on 02/07/21at 09:45; Start 02/04/21 at 12:00 Atorvastatin Calcium (Lipitor) 80 mg QHS PO Last administered on 11/7/21at 20:24; Start 02/04/21 at 21:00; Stop 02/05/21 at 09:20; Status DC Apixaban (Eliquis) 2.5 mg BID PO Last administered on 02/06/21at 10:04; Start 02/06/21 at 09:15; Stop 02/06/21 at 12:06; Status DC Apixaban (Eliquis) 5 mg BID PO Last administered on 02/07/21at 09:45; Start 02/06/21 at 21:00 Metoprolol Tartrate (Lopressor) 25 mg BID PO Last administered on 02/07/21at 09:45; Start 02/06/21 at 14:00 Amlodipine Besylate (Norvasc) 5 mg 1X ONCE PO Last administered on 02/06/21at 14:00; Start 02/06/21 at 14:00; Stop 02/06/21 at 14:01; Status DC Amlodipine Besylate (Norvasc) 2.5 mg DAILY PO ; Start 02/07/21 at 09:00; Stop 02/06/21 at 14:50; Status DC Amlodipine Besylate (Norvasc) 10 mg DAILY PO Last administered on 02/07/21at 09:45; Start 02/07/21 at 09:00 Atorvastatin Calcium (Lipitor) 10 mg QHS PO Last administered on 02/06/21at 20:44; Start 02/06/21 at 21:00 Amlodipine Besylate (Norvasc) 5 mg 1X ONCE PO Last administered on 02/06/21at 15:12; Start 02/06/21 at 15:15; Stop 02/06/21 at 15:16; Status DC Amlodipine Besylate (Norvasc) 5 mg 1X ONCE PO ; Start 02/06/21 at 15:15; Stop 02/06/21 at 15:16; Status DC Active Scripts Active Metoprolol Succinate ( Xl ) (Metoprolol Succinate) 100 Mg Tab.er.24h 1 Tab PO DAILY Eliquis (Apixaban) 5 Mg Tablet 5 Mg PO BID Reported Vitamin D3 (Vitamin D) 25 Mcg Tablet 25 Mcg PO DAILY 1,000 UNITS = 25 MCG Vitamin C (Ascorbic Acid) 500 Mg Capsule.er 2 Cap PO DAILY 30 Days Ocuvite Lutein 25-5 mg Softgel (Lutein/Zeaxanthin) 1 Each Capsule 1 Cap PO DAILY 30 Days Zinc 50 Mg Tablet 100 Mg PO DAILY Daily Value (Multivitamin) 1 Each Tablet 1 Tab PO DAILY 30 Days Acetaminophen 325 Mg Tablet 325 Mg PO PRN Q4HRS PRN Ibuprofen 600 Mg Tablet 600 Mg PO PRN Q6HRS PRN Nexium Capsule (Esomeprazole Magnesium) 40 Mg Capsule.dr 40 Mg PO DAILYAC Fluticasone Propionate Nasal Hope (Fluticasone Propionate) 16 Gm Hope.susp 2 Hope NS DAILY Losartan Potassium 100 Mg Tablet 100 Mg PO DAILY Synthroid (Levothyroxine Sodium) 137 Mcg Tablet 137 Mcg PO DAILYAC Vitals/I & O Vital Sign - Last 24 Hours 02/06/21 02/06/21 02/06/21 02/06/21 14:00 14:00 14:32 15:12 Temp 98.3 98.3 Pulse 88 88 65 65 Resp 18 B/P (MAP) 187/90 187/90 207/105 (139) 207/105 Pulse Ox 96 O2 Delivery Room Air 02/06/21 02/06/21 02/06/21 02/06/21 19:00 20:25 20:45 20:53 Temp 97.6 97.6 Pulse 88 88 88 Resp 18 B/P (MAP) 160/87 (111) 160/87 160/87 Pulse Ox 91 O2 Delivery Room Air Room Air 02/06/21 02/06/21 02/07/21 02/07/21 23:00 23:00 03:00 07:22 Temp 97.5 97.7 97.9 97.5 97.7 97.9 Pulse 79 82 86 88 Resp 16 18 18 B/P (MAP) 182/92 182/92 (122) 142/78 (99) 149/87 (107) Pulse Ox 94 94 96 O2 Delivery Nasal Cannula Nasal Cannula Room Air O2 Flow Rate 2.0 2.0 02/07/21 02/07/21 02/07/21 02/07/21 08:00 09:45 09:45 09:46 Pulse 88 88 88 B/P (MAP) 149/87 149/87 149/87 O2 Delivery Room Air Intake and Output 02/06/21 02/06/21 02/07/21 15:00 23:00 07:00 Intake Total 360 ml 1400 ml 100 ml Balance 360 ml 1400 ml 100 ml Justicifation of Admission Dx: Justifications for Admission: Justification of Admission Dx: N/A ENE ALEGRE MD Feb 07, 2021 11:07
--- NOTE | 2021-02-07 11:40 | PDOC ---
CARDIO Progress Notes Date and Time Date of Service 02/07/2021 Time of Evaluation 1110 Subjective Subjective: No Chest Pain, No shortness of breath, No Palpitations Vitals Vitals Vital Signs Date Time Temp Pulse Resp B/P (MAP) Pulse Ox O2 Delivery O2 Flow Rate FiO2 02/07/21 09:46 88 149/87 02/07/21 08:00 Room Air 02/07/21 07:22 97.9 18 96 97.9 02/07/21 03:00 2.0 Weight Weight [ ] Input and Output Intake and Output Intake and Output 02/07/21 07:00 Intake Total 1860 ml Balance 1860 ml Intake Oral 1860 ml # Voids 4 Physical Exam HEENT: Neck Supple W Full Motion Chest: Symmetric LUNGS: Clear to Auscultation Heart: S1S2, irregularly irregular (AFIB) Abdomen: Soft N/T Extremities: No Calf Tenderness Neurology: alert, oriented, follow commands Assessment Assessment 1. Acute on subacute infarct in the left frontal lobe along the left MCA distribution with lesion in the M2 segment: per neurology 2. AFIB/flutter: new finding, rate controlled. EF and WM nml 3. Hx of NSVT: used to be on mexilitine, no prior CAD 4. Hypothyroidism: per PCP 5. COPD 6. HTN urgency: better Recommendations 1. Continue metoprolol for rate control. Eliquis for stroke prevention 2. Continue norvasc and statinHBPM 3. Follow up with Dr. Pereira on March 29 10 AM 4. 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
[2021-02-07] MEDS ORDERED: LEVO125T PO (12:57)
--- NOTE | 2021-02-07 14:00 | NUR ---
Discharge Note: JACK CABRERA Discharge instructions and discharge home medications reviewed with Patient and a copy given. All questions have been answered and understanding verbalized. The following instructions and handouts were given: stroke education packet, ischemic stroke IV discontinued, no complications Patient discharged to home with home health All belongings taken home with patient.
--- NOTE | 2021-02-07 14:20 | NUR ---
SS following up with discharge planning. SS reviewed pt chart and discussed with pt RN. Pt is currently on room air. PT/OT recommended home with home healthcare. Pt accepted on services with [facility], ; fax [phone]. Discharge orders received and sent to [facility]. Pt's RN notified.
--- NOTE | 2021-02-09 16:56 | PDOC ---
[employer] PROGRESS NOTE Date of Service DOS: DATE: 02/04/21 TIME: 16:56 Chief Complaint Chief Complaint Left MCA stroke, with rapid recovery like TIA, MRI showed new event Hypertensive emergency on admit History of Graves' disease History of sleep apnea History of COPD History of GERD mild dementia. chronic diastolic CHF with Atrial fibrillation, on apixaban, History of Present Illness History of Present Illness Echocardiogram pending, held aspirin and apixaban may resume Check B12 and sedimentation rate PT and OT and speech, Physical Exam General: Alert, Oriented X3, Cooperative, No acute distress Heart: Normal S1, Normal S2, No murmurs, Other (AFIB) Abdomen: Soft, No tenderness Extremities: No cyanosis, No edema Skin: No breakdown, No significant lesion Assessment and Plan Assessmemt and Plan Problems Medical Problems: (1) Acute ischemic left MCA stroke Status: Acute Comment Review of Relevant I have reviewed the following items jer (where applicable) has been applied. Justifications for Admission Other Justification Left MCA stroke CAMACHO VOSS MD Feb 09, 2021 16:56
== END 2021-02-07 15:15 | disposition still patient (30) | DRG 64 ==
LOC: ER 14:36 → 6 SOUTH 16:36
PROVIDERS: ADMIT Internal Medicine; ATTEND Internal Medicine
DX: I63.512 Cerebral infarction due to unspecified occlusion or stenosis of left middle cerebral artery (principal); G93.41 Metabolic encephalopathy; I16.1 Hypertensive emergency; I50.32 Chronic diastolic (congestive) heart failure; I48.92 Unspecified atrial flutter; I48.91 Unspecified atrial fibrillation; E03.9 Hypothyroidism, unspecified; E05.00 Thyrotoxicosis with diffuse goiter without thyrotoxic crisis or storm; F03.90 Unspecified dementia, unspecified severity, without behavioral disturbance, psychotic disturbance, mood disturbance, and anxiety; E78.5 Hyperlipidemia, unspecified; G47.33 Obstructive sleep apnea (adult) (pediatric); H91.93 Unspecified hearing loss, bilateral; I11.0 Hypertensive heart disease with heart failure; I34.0 Nonrheumatic mitral (valve) insufficiency; I37.1 Nonrheumatic pulmonary valve insufficiency; J43.9 Emphysema, unspecified; K22.70 Barrett's esophagus without dysplasia; R29.700 NIHSS score 0; Z79.01 Long term (current) use of anticoagulants; Z79.82 Long term (current) use of aspirin; Z82.49 Family history of ischemic heart disease and other diseases of the circulatory system; Z86.73 Personal history of transient ischemic attack (TIA), and cerebral infarction without residual deficits; Z90.710 Acquired absence of both cervix and uterus; Z96.649 Presence of unspecified artificial hip joint; Z96.659 Presence of unspecified artificial knee joint; Z99.81 Dependence on supplemental oxygen; K21.9 Gastro-esophageal reflux disease without esophagitis; M19.90 Unspecified osteoarthritis, unspecified site; Z88.0 Allergy status to penicillin; Z88.2 Allergy status to sulfonamides; Z88.8 Allergy status to other drugs, medicaments and biological substances
CPT/HCPCS: 36415; 70450; 70496; 70498; 70551; 80048; 80061; 81001; 82607; 83735; 84100; 84439; 84443; 85025; 85651; 93005; 93306; J3490; J7030; 92610-GN; 97116-GP; 97530-GO; 97535-GO; 99291-25; G0378